=== PATIENT | female | born 1965 | race Caucasian/White ===

== ENCOUNTER 2017-09-28 11:32 | Emergency (ER) | payer MEDICARE, MEDICAID, SELFPAY ==
[2017-09-28 11:34] VITALS: BP 129/88; PULSE 87; RESP 14; TEMP 37.9; O2SAT 95; BMI 51.2
--- NOTE | 2017-09-28 12:30 | RAD_ITS ---
STUDY: X-RAY CHEST REASON FOR EXAM: Female, 52 years old. Cough and chest congestion. TECHNIQUE: PA and lateral views of the chest. COMPARISON: Comparison is made with prior study dated June 08, 2017. FINDINGS: Hyperinflation. Increased markings at the lung bases slightly worse on the left side. This most likely represents scarring. I also suspect focal infiltrate superimposed in the left lower lobe at this time. Radiographic follow-up is recommended. Normal size heart. Normal mediastinum and cherise. Normal visualized pulmonary arteries. Normal visualized aortic arch and descending thoracic aorta. Normal visualized thoracic spine. Normal visualized ribs, clavicles, and shoulders. There is no demonstrated abnormality of the visualized soft tissue structures of the upper abdomen. RAD/Chest PA and Lateral IMPRESSION: Hyperinflation. Findings suggestive of focal infiltrate superimposed on scarring at the left lung base. Electronically Signed: Maxim Kapoor MD at 13:29 EDT Tel [phone], Service support ,
--- NOTE | 2017-09-28 13:38 | ED.VISSUMM ---
- ER Visit Summary Date of Service: 09/28/17 Chief Complaint: [] Cold symptoms History of Present Illness: The patient is a 52 F [] MRDD, presents with caregiver with complaints of URI symptoms and nasal congestion. Caregiver reports she was treated for pneumonia in May of last year. Denies fevers. Physical Examination: [] HEENT: Nasal congestion with mucus, moist mucous membranes. Cardiovascular exam is regular rate and rhythm. Lungs are clear to auscultation. Abdomen is soft nontender. Test Results: [] Chest x-ray reveals early left lower lobe infiltrate. Emergency Department Course and Treatment: [] Labs were not obtained as the patient had a benign presentation. Patient was given initial dose of azithromycin orally for azithromycin for the next 4 days. Treatment Plan: [] Follow-up with PCP. Return if symptoms worsen. Outpatient antibiotic prescription. Disposition: [] Discharge, stable. Impression: [] Left lower lobe infiltrate, community acquired pneumonia This note was generated with [employer] dictation software. It may contain incorrect words, spelling, and punctuation that were not noted in review of the chart prior to signing ED Disposition - Plan for ED Patient: Chief Complaint: Cold Sx Referrals: Lazaro Serna MD [Primary Care Provider] -
--- NOTE | 2017-09-28 13:42 | ED.DCSUM_ITS ---
- ER Visit Summary Date of Service: 09/28/17 Chief Complaint: [] Cold symptoms History of Present Illness: The patient is a 52 F [] MRDD, presents with caregiver with complaints of URI symptoms and nasal congestion. Caregiver reports she was treated for pneumonia in May of last year. Denies fevers. Physical Examination: [] HEENT: Nasal congestion with mucus, moist mucous membranes. Cardiovascular exam is regular rate and rhythm. Lungs are clear to auscultation. Abdomen is soft nontender. Test Results: [] Chest x-ray reveals early left lower lobe infiltrate. Emergency Department Course and Treatment: [] Labs were not obtained as the patient had a benign presentation. Patient was given initial dose of azithromycin orally for azithromycin for the next 4 days. Treatment Plan: [] Follow-up with PCP. Return if symptoms worsen. Outpatient antibiotic prescription. Disposition: [] Discharge, stable. Impression: [] Left lower lobe infiltrate, community acquired pneumonia This note was generated with [employer] dictation software. It may contain incorrect words, spelling, and punctuation that were not noted in review of the chart prior to signing ED Disposition - Plan for ED Patient: Chief Complaint: Cold Sx Referrals: Lazaro Serna MD [Primary Care Provider] -
--- NOTE | 2017-09-28 13:42 | ED.DEP ---
ED Disposition - Plan for ED Patient: Disposition: Home or Assisted Living Chief Complaint: Cold Sx Instructions: ED Upper Resp Infec Abx Tx Prescriptions: Azithromycin 250 mg PO DAILY #4 tab Referrals: Lazaro Serna MD [Primary Care Provider] -
[2017-09-28 14:25] VITALS: PULSE 83; PULSE 85; RESP 16; O2SAT 94; O2SAT 98
[2017-09-28] MEDS: Azithromycin 250 MG Tablet 500 MG PO (14:25)
== END 2017-09-28 14:28 | disposition home or self-care (01) ==
PROVIDERS: Emergency Provider Emergency Medicine; Family Provider Internal Medicine; PCP Internal Medicine
DX: J18.9 Pneumonia, unspecified organism (principal); E78.00 Pure hypercholesterolemia, unspecified; F79 Unspecified intellectual disabilities
CPT/HCPCS: 71046; 99283

== ENCOUNTER 2018-03-30 15:07 | Inpatient (IN) | payer MEDICARE, MEDICAID, SELFPAY ==
[2018-03-30] VITALS (8 sets, daily range): BP systolic 92–114; BP diastolic 41–69; PULSE 73–981; RESP 16–29; TEMP 36.4–37.8; O2SAT 91–100; BMI 24.3; BMI 23.3
--- NOTE | 2018-03-30 15:18 | EKG12_ITS ---
Test Reason : FEVER Blood Pressure : / mmHG Vent. Rate : 104 BPM Atrial Rate : 104 BPM P-R Int : 128 ms QRS Dur : 086 ms QT Int : 324 ms P-R-T Axes : 042 070 -03 degrees QTc Int : 426 ms Sinus tachycardia T wave abnormality, consider inferolateral ischemia Abnormal ECG Confirmed by DAIN FISH, CLARIBEL ([id number]), assignment editor CARY GANNON ([id number]) on 04/02/2018 2:45:13 PM Referred By: Maynor Marie Confirmed By:CLARIBEL GAUTAM MD
--- NOTE | 2018-03-30 15:18 | RAD_ITS ---
STUDY: X-RAY CHEST REASON FOR EXAM: Female, 52 years old. CAREGIVER REPORTS PT HAS BEEN HAVING INCREASED AGITATION AT HOME TODAY. FEVER AT HOME TODAY, HISTORY OF ASPIRATION PNEUMONIA. TECHNIQUE: Single AP portable view of the chest. COMPARISON: None. FINDINGS: The lungs are clear and expanded. There is no demonstrated pleural abnormality. Normal size heart. Normal mediastinum and cherise. Normal visualized pulmonary arteries. Normal visualized aortic arch and descending thoracic aorta. Normal visualized thoracic spine. Normal visualized ribs, clavicles, and shoulders. There is no demonstrated abnormality of the visualized soft tissue structures of the upper abdomen. RAD/Chest 1 View (Portable) IMPRESSION: Normal x-ray examination of the chest. Electronically Signed: Kate Hill MD at 15:38 EDT Tel , Service support ,
--- NOTE | 2018-03-30 15:19 | NURSING ---
NO OLD EKGS
--- NOTE | 2018-03-30 15:20 | ED.VISSUMM ---
- ER Visit Summary Date of Service: 03/30/18 Chief Complaint: Fever, weakness, increased agitation History of Present Illness: The patient is a 52 F who has a history of Down syndrome and has a caregiver 16/01. Caregivers noticed over the past couple of days she has had a cough is increasing. She has a lot of mucus production. She has a hard time clearing it because of her large tongue. She seems weaker than normal. She has been eating less although she does have a couple of Ensure bottles a day. She does not wear any home oxygen. No history of any lung issues. Her temperature is 100.2?F today at home. Physical Examination: Vital signs are reviewed. HEENT exam shows dry mucous membranes. She keeps her tongue protruded throughout the exam. Heart is regular rate and rhythm. Lungs have rhonchorous breath sounds bilaterally. Abdomen soft and nontender. Extremities reveal no edema. Her neurologic exam is at baseline according to caregiver. Test Results: Chest x-ray is read as unremarkable by radiology. EKG is sinus tachycardia with nonspecific ST and T wave changes. White count is 20.4. Glucose 113. Lactate 2.1. Urinalysis negative for blood or infection. Emergency Department Course and Treatment: The patient is producing a lot of mucus. She may have a pneumonia that is not seen on x-ray. She does meet severe sepsis criteria. I will start her on IV fluids and put her on Rocephin and azithromycin. Was discussed with the hospitalist for admission. Treatment Plan: [] Disposition: Admit Impression: Community-acquired pneumonia, severe sepsis This note was generated with [employer] dictation software. It may contain incorrect words, spelling, and punctuation that were not noted in review of the chart prior to signing ED Disposition - Plan for ED Patient: Chief Complaint: Fever Referrals: Lazaro eSrna MD [Primary Care Provider] -
--- NOTE | 2018-03-30 15:24 | ED.DCSUM_ITS ---
- ER Visit Summary Date of Service: 03/30/18 Chief Complaint: Fever, weakness, increased agitation History of Present Illness: The patient is a 52 F who has a history of Down syndrome and has a caregiver 16/01. Caregivers noticed over the past couple of days she has had a cough is increasing. She has a lot of mucus production. She has a hard time clearing it because of her large tongue. She seems weaker than normal. She has been eating less although she does have a couple of Ensure bottles a day. She does not wear any home oxygen. No history of any lung issues. Her temperature is 100.2?F today at home. Physical Examination: Vital signs are reviewed. HEENT exam shows dry mucous membranes. She keeps her tongue protruded throughout the exam. Heart is regular rate and rhythm. Lungs have rhonchorous breath sounds bilaterally. Abdomen soft and nontender. Extremities reveal no edema. Her neurologic exam is at baseline according to caregiver. Test Results: Chest x-ray is read as unremarkable by radiology. EKG is sinus tachycardia with nonspecific ST and T wave changes. White count is 20.4. Glucose 113. Lactate 2.1. Urinalysis negative for blood or infection. Emergency Department Course and Treatment: The patient is producing a lot of mucus. She may have a pneumonia that is not seen on x-ray. She does meet severe sepsis criteria. I will start her on IV fluids and put her on Rocephin and azithromycin. Was discussed with the hospitalist for admission. Treatment Plan: [] Disposition: Admit Impression: Community-acquired pneumonia, severe sepsis This note was generated with [employer] dictation software. It may contain incorrect words, spelling, and punctuation that were not noted in review of the chart prior to signing ED Disposition - Plan for ED Patient: Chief Complaint: Fever Referrals: Lazaro Serna MD [Primary Care Provider] -
[2018-03-30 16:10] LABS: Absolute Lymphocyte Count 1.02 X10^3/ul (0.83-4.51); Absolute Neutrophil Count 18.3 X10^3/uL (2.0-7.7); Basophil# 0.04 X10^3/uL; Basophil% 0.2 % (0-1); Eosinophil# 0.01 X10^3/uL; Hemoglobin 13.9 g/dl (12.0-15.0); Lymphocyte # 1.02 X10^3/ul (4.0); Mean Corp Hgb Conc 33.1 g/gl (32-36); Mean Corpuscular Hgb 32.9 pg (27.0-32.0); Mean Corpuscular Volume 99.3 fL (81-99); Mean Platelet Vol. 9.4 fl (6.2-12.0); Monocyte# 0.96 X10^3/uL; Monocyte% 4.7 % (0-10); Neutrophil # 18.27 X10^3/uL (2.7-7.7); Neutrophil % 89.8 % (47-70); Platelet Count 281 K/mm3 (150-450); RBC Distribution Width CV 14.1 % (11.6-14.6); RBC Distribution Width SD 50.3 fl (35.1-43.9); Red Blood Count 4.23 M/mm3 (4.2-5.4); White Blood Count 20.4 K/mm3 (4.4-11.0)
[2018-03-30 16:12] LABS: POSITIVE COUNT NO; POSITIVE DIFFERENTIAL NO; POSITIVE MORPHOLOGY NO
[2018-03-30 16:19] LABS: Bacteria 0 SEEN /hpf (None Seen); Mucous, Urine 0 SEEN /hpf (<or=2+); Red Blood Cells-Urine 0 SEEN /hpf (0-5); Squamous Epithelial Cells - UA 0 SEEN /hpf (5-10); White Blood Cells 0 SEEN /hpf (0-5)
[2018-03-30 16:24] LABS: Color, Urine Yellow (Yellow); Glucose, Dipstick Normal (Normal); Ketone-Dipstick 5 mg/dl (Negative); Leukocyte Esterase-Dipstick 25 /ul (Negative); Nitrite-Dipstick Negative (Negative); Occult Blood-Urine Negative /ul (Negative); Protein-Dipstick Negative (Negative); Urine Bilirubin Dipstick Negative (Negative); Urine Clarity Clear (Clear); Urine Urobilinogen Normal (Normal)
[2018-03-30 16:28] LABS: ALB/GLOB Ratio 0.5 RATIO (0.9-2.4); AST(SGOT) 29 U/L (15-37); Alanine Aminotransfer ALT/SGPT 17 U/L (13-56); Albumin, Serum 2.8 g/dL (3.2-5.0); Alkaline Phosphatase 101 U/L (45-117); Anion Gap 7 (5-15); BUN 14 mg/dL (7-18); BUN/Creat Ratio 14.4 RATIO (10-20); Calcium,Total 9.2 mg/dL (8.5-10.1); Chloride 100 mmol/L (98-107); Creatinine, Serum 0.97 mg/dL (0.55-1.02); EST Glomerular Filtration Rate 64 mL/min (>60); Est Glom Filt Rate - Afr Amer 77 mL/min (>60); Estimated Creatinine Clearance 57.08 ml/min; Globulin 5.8 g/dL (2.2-4.2); Glucose 113 mg/dL (74-106); Potassium 4.2 mmol/L (3.5-5.1); Protein, Total 8.6 g/dL (6.4-8.2); Sodium Level 138 mmol/L (136-145)
[2018-03-30 16:32] LABS: Prothrombin Time (Protime)PT. 13.1 SECONDS (11.7-14.9)
[2018-03-30 16:33] LABS: Partial Thromboplast Time 27.7 Seconds (24.1-36.2)
[2018-03-30 16:43] LABS: Lactic Acid 2.1 mmol/L (0.4-2.0)
--- NOTE | 2018-03-30 16:58 | NURSING ---
MED SURG CAP, SEVERE SEPSIS [place]
--- NOTE | 2018-03-30 17:13 | PCM.HP.STD ---
Problem List (1) Pneumococcal pneumonia Status: Acute Qualifiers: Laterality: right Lung location: lower lobe of lung Qualified Code(s): J13 - Pneumonia due to Streptococcus pneumoniae (2) Severe sepsis Status: Acute History of Present Illness Date of Admission: 03/30/18 Chief Complaint: fever cough. The patient is a 52 year old F with Down syndrome presents with fever today at home. Patient is also been coughing up some phlegm and has been more listless and eating less. Patient's senior biostatistician/group leader noticed this and sent the patient to the emergency room. In the emergency room patient underwent a workup that showed a white count of 20,000, lactic acid 2.1. Chest x-ray was read as normal but concern from the emergency room physician for developing pneumonia and patient received Rocephin and azithromycin. Patient does not talk so unable to obtain any history through her so history is obtained through the emergency room physician as well as a senior biostatistician/group leader. [] Past Medical History Past Medical History (Chronic Problems): Chronic Problems Down syndrome (Chronic) HLD (hyperlipidemia) (Chronic) Depression (Chronic) Allergies Sulfa (Sulfonamide Antibiotics) Allergy (Verified 03/30/18 15:08) Rash lactose Adverse Reaction (Verified 03/30/18 15:08) Diarrhea Home Medications: Ambulatory Orders Medication Instructions Recorded Escitalopram Oxalate [Lexapro] 20 mg PO QHS 01/04/16 Levothyroxine [Synthroid] 88 mcg PO DAILY 01/04/16 Simvastatin [Zocor] 5 mg PO QHS 01/04/16 Gabapentin [Neurontin] 100 mg PO QHS 05/01/17 Multivitamin,Therapeutic [Thera] 1 each PO DAILY 09/28/17 Surgical History: - - partial hysterectomy Psychiatric History: Depression HYPERION ESSBASE DEVELOPER History: No pertinent HYPERION ESSBASE DEVELOPER history Smoking Status: Never smoker Tobacco Use: Non-smoker Alcohol: None Drugs: None - *Family History Maternal History Items: Dementia Paternal History Items: Stroke Review of Systems Unable to obtain accurate/complete ROS d/t: Unable to obtain as the patient does not speak to me. VTE Information - Inpt Only VTE Present on Admission: No VTE Mechan Device Prophylaxis: None VTE Pharm Prophylaxis ordered?: Yes Patient Problems: Active and Suspected Problems Pneumococcal pneumonia (Acute) Severe sepsis (Acute) - Physical Exam General: Alert, No apparent distress, - - Constant writhing of her tongue. Afebrile. Short stature HEENT: Atraumatic, Normocephalic, - - No scleral icterus Oral: Moist Mucosa, - - Dentulous Neck: No Nodes, Thyroid Normal Size and Texture Lungs: Diminished, - - Coarse breath sounds bilaterally Cardiovascular: Regular rate, Regular Rhythm, Normal S1, Normal S2, No murmurs Abdomen: Bowel Sounds Present, Soft, Non Tender, Non-Distended, No Hepato-splenomegaly Extremities: No edema, No Calf Tenderness Skin: No rashes, No breakdown Musculoskeletal: No Tenderness to Palpation of Joints or Extremities, No Muscle Wasting Neurological: - - No clonus.. 6 DTRs in lower extremity's bilaterally Psych/Mental Status: Flat Affect Vital Signs Temp Pulse Resp BP Pulse Ox 36.6 C 981 H 24 H 105/58 L 95 03/30/18 15:46 03/30/18 15:46 03/30/18 15:46 03/30/18 15:46 03/30/18 15:46 Oxygen Flow Rate (L/min) 2 Oxygen Delivery Method Nasal Cannula Weight: 52.7 kg Body Mass Index (BMI) 24.3 Laboratory Tests Past 24 Hrs 03/30/18 03/30/18 03/30/18 15:50 15:50 15:50 WBC 20.4 H RBC 4.23 Hgb 13.9 Hct 42.0 MCV 99.3 H MCH 32.9 H MCHC 33.1 RDW 14.1 RDW Differential 50.3 H Plt Count 281 MPV 9.4 Immature Gran % (Auto) 0.300 Neut % (Auto) 89.8 H Lymph % (Auto) 5.0 L [place] % (Auto) 4.7 Eos % (Auto) 0.0 Baso % (Auto) 0.2 Absolute Neuts (auto) 18.3 H Absolute Lymphs (auto) 1.02 Total Counted Not Reportable PT 13.1 INR 1.0 APTT 27.7 Sodium 138 Potassium 4.2 Chloride 100 Carbon Dioxide 31.0 Anion Gap 7 BUN 14 Creatinine 0.97 Estim Creat Clear Calc 57.08 Est GFR (MDRD) Af Amer 77 Est GFR (MDRD) Non-Af 64 BUN/Creatinine Ratio 14.4 Glucose 113 H Lactic Acid Calcium 9.2 Total Bilirubin 0.80 AST 29 ALT 17 Alkaline Phosphatase 101 Total Protein 8.6 H Albumin 2.8 L Globulin 5.8 H Albumin/Globulin Ratio 0.5 L Urine Color Urine Clarity Urine pH Ur Specific [place] Urine Protein Urine Glucose (UA) Urine Ketones Urine Occult Blood Urine Nitrite Urine Bilirubin Urine Urobilinogen Ur Leukocyte Esterase Urine RBC Urine WBC Ur Squamous Epith Cells Urine Bacteria Urine Mucus 03/30/18 03/30/18 15:50 16:10 WBC RBC Hgb Hct MCV MCH MCHC RDW RDW Differential Plt Count MPV Immature Gran % (Auto) Neut % (Auto) Lymph % (Auto) [place] % (Auto) Eos % (Auto) Baso % (Auto) Absolute Neuts (auto) Absolute Lymphs (auto) Total Counted PT INR APTT Sodium Potassium Chloride Carbon Dioxide Anion Gap BUN Creatinine Estim Creat Clear Calc Est GFR (MDRD) Af Amer Est GFR (MDRD) Non-Af BUN/Creatinine Ratio Glucose Lactic Acid 2.1 H Calcium Total Bilirubin AST ALT Alkaline Phosphatase Total Protein Albumin Globulin Albumin/Globulin Ratio Urine Color Yellow Urine Clarity Clear Urine pH 8.0 Ur Specific [place] 1.010 Urine Protein Negative Urine Glucose (UA) Normal Urine Ketones 5 H Urine Occult Blood Negative Urine Nitrite Negative Urine Bilirubin Negative Urine Urobilinogen Normal Ur Leukocyte Esterase 25 H Urine RBC 0 SEEN Urine WBC 0 SEEN Ur Squamous Epith Cells 0 SEEN Urine Bacteria 0 SEEN Urine Mucus 0 SEEN Chest x-ray reviewed and showed some slight increasing right lower lobe markings as compared to previous chest x-rays from September 28 of this year. Assessment/Plan All Active Problems Pneumococcal pneumonia (Acute) Severe sepsis (Acute) Acute bronchitis (Acute) Pneumonia (Acute) 1. Severe sepsis present on arrival Secondary to pneumonia Supportive management Follow-up lactic acid. Initial lactic acid was 2.1 Follow-up blood cultures Urinalysis was negative 2. Presumed pneumococcal pneumonia Azithromycin and and Rocephin Check urinary antigens for strep to coccus and Legionella Check sputum culture 3. Down syndrome complicates care 4. History of dysphagia Patient's pneumonia could certainly could be aspiration Though it has been elected previously to have comfort feeds and thin liquids for the patient 5. DVT prophylaxis with Lovenox 6. Advanced care planning. The senior biostatistician/group leader is not the power of claim attorney and that is the patient's sister but patient has been previously full CODE STATUS. Code Visit Inpatient E&M: 27266 Init Hosp L3
[2018-03-30] MEDS: 0.9% Normal Saline 1,000 ML 150 ML IV (17:16)
[2018-03-30] MEDS: Ceftriaxone 1 GM/50 ML BAG IV (17:16)
--- NOTE | 2018-03-30 17:19 | HP.PCM_ITS ---
Problem List (1) Pneumococcal pneumonia Status: Acute Qualifiers: Laterality: right Lung location: lower lobe of lung Qualified Code(s): J13 - Pneumonia due to Streptococcus pneumoniae (2) Severe sepsis Status: Acute History of Present Illness Date of Admission: 03/30/18 Chief Complaint: fever cough. The patient is a 52 year old F with Down syndrome presents with fever today at home. Patient is also been coughing up some phlegm and has been more listless and eating less. Patient's manager industrial noticed this and sent the patient to the emergency room. In the emergency room patient underwent a workup that showed a white count of 20,000, lactic acid 2.1. Chest x-ray was read as normal but concern from the emergency room physician for developing pneumonia and patient received Rocephin and azithromycin. Patient does not talk so unable to obtain any history through her so history is obtained through the emergency room physician as well as a manager industrial. [] Past Medical History Past Medical History (Chronic Problems): Chronic Problems Down syndrome (Chronic) HLD (hyperlipidemia) (Chronic) Depression (Chronic) Allergies Sulfa (Sulfonamide Antibiotics) Allergy (Verified 03/30/18 15:08) Rash lactose Adverse Reaction (Verified 03/30/18 15:08) Diarrhea Home Medications: Ambulatory Orders Medication Instructions Recorded Escitalopram Oxalate [Lexapro] 20 mg PO QHS 01/04/16 Levothyroxine [Synthroid] 88 mcg PO DAILY 01/04/16 Simvastatin [Zocor] 5 mg PO QHS 01/04/16 Gabapentin [Neurontin] 100 mg PO QHS 05/01/17 Multivitamin,Therapeutic [Thera] 1 each PO DAILY 09/28/17 Surgical History: - - partial hysterectomy Psychiatric History: Depression CEREAL SUPERVISOR History: No pertinent CEREAL SUPERVISOR history Smoking Status: Never smoker Tobacco Use: Non-smoker Alcohol: None Drugs: None - *Family History Maternal History Items: Dementia Paternal History Items: Stroke Review of Systems Unable to obtain accurate/complete ROS d/t: Unable to obtain as the patient does not speak to me. VTE Information - Inpt Only VTE Present on Admission: No VTE Mechan Device Prophylaxis: None VTE Pharm Prophylaxis ordered?: Yes Patient Problems: Active and Suspected Problems Pneumococcal pneumonia (Acute) Severe sepsis (Acute) - Physical Exam General: Alert, No apparent distress, - - Constant writhing of her tongue. Afebrile. Short stature HEENT: Atraumatic, Normocephalic, - - No scleral icterus Oral: Moist Mucosa, - - Dentulous Neck: No Nodes, Thyroid Normal Size and Texture Lungs: Diminished, - - Coarse breath sounds bilaterally Cardiovascular: Regular rate, Regular Rhythm, Normal S1, Normal S2, No murmurs Abdomen: Bowel Sounds Present, Soft, Non Tender, Non-Distended, No Hepato- splenomegaly Extremities: No edema, No Calf Tenderness Skin: No rashes, No breakdown Musculoskeletal: No Tenderness to Palpation of Joints or Extremities, No Muscle Wasting Neurological: - - No clonus.. 6 DTRs in lower extremity's bilaterally Psych/Mental Status: Flat Affect Vital Signs Temp Pulse Resp BP Pulse Ox 36.6 C 981 H 24 H 105/58 L 95 03/30/18 15:46 03/30/18 15:46 03/30/18 15:46 03/30/18 15:46 03/30/18 15:46 Oxygen Flow Rate (L/min) 2 Oxygen Delivery Method Nasal Cannula Weight: 52.7 kg Body Mass Index (BMI) 24.3 Laboratory Tests Past 24 Hrs 03/30/18 03/30/18 03/30/18 15:50 15:50 15:50 WBC 20.4 H RBC 4.23 Hgb 13.9 Hct 42.0 MCV 99.3 H MCH 32.9 H MCHC 33.1 RDW 14.1 RDW Differential 50.3 H Plt Count 281 MPV 9.4 Immature Gran % (Auto) 0.300 Neut % (Auto) 89.8 H Lymph % (Auto) 5.0 L [place] % (Auto) 4.7 Eos % (Auto) 0.0 Baso % (Auto) 0.2 Absolute Neuts (auto) 18.3 H Absolute Lymphs (auto) 1.02 Total Counted Not Reportable PT 13.1 INR 1.0 APTT 27.7 Sodium 138 Potassium 4.2 Chloride 100 Carbon Dioxide 31.0 Anion Gap 7 BUN 14 Creatinine 0.97 Estim Creat Clear Calc 57.08 Est GFR (MDRD) Af Amer 77 Est GFR (MDRD) Non-Af 64 BUN/Creatinine Ratio 14.4 Glucose 113 H Lactic Acid Calcium 9.2 Total Bilirubin 0.80 AST 29 ALT 17 Alkaline Phosphatase 101 Total Protein 8.6 H Albumin 2.8 L Globulin 5.8 H Albumin/Globulin Ratio 0.5 L Urine Color Urine Clarity Urine pH Ur Specific [place] Urine Protein Urine Glucose (UA) Urine Ketones Urine Occult Blood Urine Nitrite Urine Bilirubin Urine Urobilinogen Ur Leukocyte Esterase Urine RBC Urine WBC Ur Squamous Epith Cells Urine Bacteria Urine Mucus 03/30/18 03/30/18 15:50 16:10 WBC RBC Hgb Hct MCV MCH MCHC RDW RDW Differential Plt Count MPV Immature Gran % (Auto) Neut % (Auto) Lymph % (Auto) [place] % (Auto) Eos % (Auto) Baso % (Auto) Absolute Neuts (auto) Absolute Lymphs (auto) Total Counted PT INR APTT Sodium Potassium Chloride Carbon Dioxide Anion Gap BUN Creatinine Estim Creat Clear Calc Est GFR (MDRD) Af Amer Est GFR (MDRD) Non-Af BUN/Creatinine Ratio Glucose Lactic Acid 2.1 H Calcium Total Bilirubin AST ALT Alkaline Phosphatase Total Protein Albumin Globulin Albumin/Globulin Ratio Urine Color Yellow Urine Clarity Clear Urine pH 8.0 Ur Specific [place] 1.010 Urine Protein Negative Urine Glucose (UA) Normal Urine Ketones 5 H Urine Occult Blood Negative Urine Nitrite Negative Urine Bilirubin Negative Urine Urobilinogen Normal Ur Leukocyte Esterase 25 H Urine RBC 0 SEEN Urine WBC 0 SEEN Ur Squamous Epith Cells 0 SEEN Urine Bacteria 0 SEEN Urine Mucus 0 SEEN Chest x-ray reviewed and showed some slight increasing right lower lobe markings as compared to previous chest x-rays from September 28 of this year. Assessment/Plan All Active Problems Pneumococcal pneumonia (Acute) Severe sepsis (Acute) Acute bronchitis (Acute) Pneumonia (Acute) 1. Severe sepsis * present on arrival * Secondary to pneumonia * Supportive management * Follow-up lactic acid. Initial lactic acid was 2.1 * Follow-up blood cultures * Urinalysis was negative 2. Presumed pneumococcal pneumonia * Azithromycin and and Rocephin * Check urinary antigens for strep to coccus and Legionella * Check sputum culture 3. Down syndrome * complicates care 4. History of dysphagia * Patient's pneumonia could certainly could be aspiration * Though it has been elected previously to have comfort feeds and thin liquids for the patient 5. DVT prophylaxis with Lovenox 6. Advanced care planning. The manager industrial is not the power of seed cleaning machine operator and that is the patient's sister but patient has been previously full CODE STATUS. Code Visit Inpatient E&M: 40434 Init Hosp L3
[2018-03-30] MEDS: Ipratropium/Albuterol Sulfate 3 ML AMPUL.NEB INHALATION ×2 (19:17→23:04)
[2018-03-30 20:00] LABS: Reflex Lactate? Y
--- NOTE | 2018-03-30 20:04 | CPS ---
pt is mrdd does not follow instructions for pep and would not allow vest to be put on
[2018-03-30] MEDS: Acetaminophen 325 MG Tablet 650 MG PO (20:15)
[2018-03-30 21:28] LABS: Lactic Acid 1.5 mmol/L (0.4-2.0)
[2018-03-30] MEDS: Atorvastatin Calcium 10 MG Tablet 5 MG PO (22:11)
[2018-03-30] MEDS: guaiFENesin 1,200 MG Tablet 1200 MG PO (22:11)
[2018-03-30] MEDS: Escitalopram Oxalate 20 MG Tablet PO (22:11)
[2018-03-30] MEDS: Gabapentin 100 MG Capsule PO (22:11)
--- NOTE | 2018-03-30 23:10 | CPS ---
pt did not want aero tx-kept batting mask away and turning head away. aero held in front of pt face-did not tolerate. pt moaning
[2018-03-31] VITALS (8 sets, daily range): BP systolic 102–133; BP diastolic 44–86; PULSE 64–84; RESP 18–22; TEMP 36.6–37.1; O2SAT 94–96
[2018-03-31] MEDS: 0.9% Normal Saline 1,000 ML 125 ML IV (00:13)
[2018-03-31] MEDS: Levothyroxine 88 MCG Tablet PO (06:47)
--- NOTE | 2018-03-31 07:20 | PCM.PN.HOSP ---
Patient Problems: Active and Suspected Problems Pneumococcal pneumonia (Acute) Severe sepsis (Acute) Subjective: Patient able to nod head for some answers and states that she feels improved since initial presentation and denies any current dyspnea. She is currently attempting to sit up and color in a coloring book. Patient without evidence of fevers, chills, nausea, emesis, abdominal pain, chest pain per nursing staff and yes and no questioning. Objective: Physical Examination: General: awake, alert, able to answer some yes/no questions with head nod, difficult to request orientation questions, underlying MRDD, cooperative, seated upright in bed in no apparent distress. Skin: normal color, turgor, no icterus, cyanosis. HEENT: AT/NC, EOMI, PERRLA, mildly dry MM. Lungs: Diminished BS BL, > bases, mild coarse, rales bases, no wheezing. Heart: Regular rate and rhythm; no gallop, rub audible. Abdomen: soft, NTTP, ND, normal BS. Extremities: no cyanosis, clubbing, or edema. Neurological: patient awake, alert, orientation difficult to assess w/ underlying MRDD; cognitive function possibly baseline intact, low baseline; pupils equally reactive to light and accomodation; cranial nerves II-XII grossly normal, moving all 4 extremities, no focal deficits, strength appears moderately globally decreased secondary to acute presentation. Psychiatric: affect appears mildly flat, no acute evidence of depressive or anxiety feelings. Vitals/I&O's: Vital Signs Temp Pulse Resp BP Pulse Ox 98.4 F 71 22 H 133/86 H 95 03/31/18 04:07 03/31/18 04:07 03/31/18 04:07 03/31/18 04:07 03/31/18 04:07 Oxygen Flow Rate (L/min) 2 Oxygen Delivery Method Room Air Weight: 111 lb Body Mass Index (BMI) 23.3 Intake and Output for Last 24 Hours 03/29/18 03/30/18 03/31/18 23:59 23:59 23:59 Intake Total 1316 / 1316 913 / 913 Output Total 150 / 150 100 / 100 Balance 1166 / 1166 813 / 813 Microbiology Past 72 Hours 03/30/18 16:10 Urine, Clean Catch Streptococcus pneumoniae Antigen (M - Final Streptococcus pneumonia Ag 03/30/18 16:10 Urine, Clean Catch Legionella Antigen - Final Laboratory Results 03/30/18 15:50: WBC 20.4 H, RBC 4.23, Hgb 13.9, Hct 42.0, MCV 99.3 H, MCH 32.9 H, MCHC 33.1, RDW 14.1, RDW Differential 50.3 H, Plt Count 281, MPV 9.4, Immature Gran % (Auto) 0.300, Neut % (Auto) 89.8 H, Lymph % (Auto) 5.0 L, [place] % (Auto) 4.7, Eos % (Auto) 0.0, Baso % (Auto) 0.2, Absolute Neuts (auto) 18.3 H, Absolute Lymphs (auto) 1.02, Total Counted Not Reportable 03/30/18 15:50: PT 13.1, INR 1.0, APTT 27.7 03/30/18 15:50: Sodium 138, Potassium 4.2, Chloride 100, Carbon Dioxide 31.0, Anion Gap 7, BUN 14, Creatinine 0.97, Estim Creat Clear Calc 57.08, Est GFR (MDRD) Af Amer 77, Est GFR (MDRD) Non-Af 64, BUN/Creatinine Ratio 14.4, Glucose 113 H, Calcium 9.2, Total Bilirubin 0.80, AST 29, ALT 17, Alkaline Phosphatase 101, Total Protein 8.6 H, Albumin 2.8 L, Globulin 5.8 H, Albumin/Globulin Ratio 0.5 L 03/30/18 15:50: Lactic Acid 2.1 H 03/30/18 16:10: Urine Color Yellow, Urine Clarity Clear, Urine pH 8.0, Ur Specific [place] 1.010, Urine Protein Negative, Urine Glucose (UA) Normal, Urine Ketones 5 H, Urine Occult Blood Negative, Urine Nitrite Negative, Urine Bilirubin Negative, Urine Urobilinogen Normal, Ur Leukocyte Esterase 25 H, Urine RBC 0 SEEN, Urine WBC 0 SEEN, Ur Squamous Epith Cells 0 SEEN, Urine Bacteria 0 SEEN, Urine Mucus 0 SEEN 03/30/18 20:45: Lactic Acid 1.5 Current Medications Acetaminophen (Tylenol) 650 mg PO Q4H PRN PRN PRN Reason: FEVER Last Admin: 03/30/18 20:15 Dose: 650 mg Albuterol Sulfate (Ventolin Aerosols) 2.5 mg INHALATION Q2H PRN PRN Reason: SHORTNESS OF BREATH Albuterol/Ipratropium (Duoneb) 3 ml INHALATION Q4HWA.RT [facility] Last Admin: 03/30/18 23:04 Dose: 3 ml Atorvastatin Calcium (Lipitor) 5 mg PO QHS [facility] Last Admin: 03/30/18 22:11 Dose: 5 mg Enoxaparin Sodium (Lovenox) 40 mg SC DAILY@1000 [facility] Escitalopram Oxalate (Lexapro) 20 mg PO QHS [facility] Last Admin: 03/30/18 22:11 Dose: 20 mg Gabapentin (Neurontin) 100 mg PO QHS [facility] Last Admin: 03/30/18 22:11 Dose: 100 mg Guaifenesin (Mucinex) 1,200 mg PO BID [facility] Last Admin: 03/30/18 22:11 Dose: 1,200 mg Azithromycin 500 mg/ Dextrose 255 mls @ 250 mls/hr IV Q24 [facility] Stop: 04/02/18 11:02 Ceftriaxone Sodium (Rocephin) 1 gm in 50 mls @ 100 mls/hr IV Q24 [facility] Levothyroxine Sodium (Synthroid) 88 mcg PO DAILY@0600 [facility] Last Admin: 03/31/18 06:47 Dose: 88 mcg Magnesium Hydroxide (Milk Of Magnesia) 30 ml PO DAILY PRN PRN PRN Reason: Constipation Multivitamins (Multivitamin) 1 tablet PO DAILY@0800 [facility] Sodium Chloride () 5 - 30 ml IV UD PRN PRN Reason: SALINE FLUSH Medical Necessity - Tobacco Use Smoking Status: Never smoker Tobacco Use: Non-smoker Assessment/Plan All Active Problems Pneumococcal pneumonia (Acute) Severe sepsis (Acute) Acute bronchitis (Acute) Pneumonia (Acute) The patient is a 52 y/o F w/ PMHx: Down Syndrome, HLD, Depression, Hypothyroidism who presents to the [facility] ED on 03/[facility] from [facility] with increased lethargy, productive cough, poor intake as well as onset fever times 24-48 hours prompting ED evaluation. (1) Severe Sepsis secondary to Streptococcal Pneumonia: CXR without acute process, but clinically suspected PNA. Admission CBC w/ WBC 204. with L shift, LA 2.1, RR > 20. Admitted to [place], maintain on oxygen with wean as tolerated to room air, continue ATC duonebs, PRN albuterol, maintained on IV Rocephin and Azithromycin-->03/31/18 rocephin only given + strep antigen, HOB, IS parameters w/ + strep urine antigens. Bld cx x 2 obtained in the ED. Repeat LA improved 1.5 (2) Hypothyroidism: Continue home synthroid regimen. (3) Hyperlipidemia: Continue home statin regimen. (4) Depression: Continue home Lexapro regimen. (5) Down Syndrome: Living in long-term, CM consultation, plan return once clinically appropriate. (6) DVT prophylaxis: SCD, Lovenox. Code Visit Inpatient E&M: 21990 Subs Hosp L2
--- NOTE | 2018-03-31 07:26 | PN_ITS ---
Patient Problems: Active and Suspected Problems Pneumococcal pneumonia (Acute) Severe sepsis (Acute) Subjective: Patient able to nod head for some answers and states that she feels improved since initial presentation and denies any current dyspnea. She is currently attempting to sit up and color in a coloring book. Patient without evidence of fevers, chills, nausea, emesis, abdominal pain, chest pain per nursing staff and yes and no questioning. Objective: Physical Examination: General: awake, alert, able to answer some yes/no questions with head nod, difficult to request orientation questions, underlying MRDD, cooperative, seated upright in bed in no apparent distress. Skin: normal color, turgor, no icterus, cyanosis. HEENT: AT/NC, EOMI, PERRLA, mildly dry MM. Lungs: Diminished BS BL, > bases, mild coarse, rales bases, no wheezing. Heart: Regular rate and rhythm; no gallop, rub audible. Abdomen: soft, NTTP, ND, normal BS. Extremities: no cyanosis, clubbing, or edema. Neurological: patient awake, alert, orientation difficult to assess w/ underlying MRDD; cognitive function possibly baseline intact, low baseline; pupils equally reactive to light and accomodation; cranial nerves II-XII grossly normal, moving all 4 extremities, no focal deficits, strength appears moderately globally decreased secondary to acute presentation. Psychiatric: affect appears mildly flat, no acute evidence of depressive or anxiety feelings. Vitals/I&O's: Vital Signs Temp Pulse Resp BP Pulse Ox 98.4 F 71 22 H 133/86 H 95 03/31/18 04:07 03/31/18 04:07 03/31/18 04:07 03/31/18 04:07 03/31/18 04:07 Oxygen Flow Rate (L/min) 2 Oxygen Delivery Method Room Air Weight: 111 lb Body Mass Index (BMI) 23.3 Intake and Output for Last 24 Hours 03/29/18 03/30/18 03/31/18 23:59 23:59 23:59 Intake Total 1316 / 1316 913 / 913 Output Total 150 / 150 100 / 100 Balance 1166 / 1166 813 / 813 Microbiology Past 72 Hours 03/30/18 16:10 Urine, Clean Catch Streptococcus pneumoniae Antigen (M - Final Streptococcus pneumonia Ag 03/30/18 16:10 Urine, Clean Catch Legionella Antigen - Final Laboratory Results 03/30/18 15:50: WBC 20.4 H, RBC 4.23, Hgb 13.9, Hct 42.0, MCV 99.3 H, MCH 32.9 H , MCHC 33.1, RDW 14.1, RDW Differential 50.3 H, Plt Count 281, MPV 9.4, Immature Gran % (Auto) 0.300, Neut % (Auto) 89.8 H, Lymph % (Auto) 5.0 L, [place] % (Auto) 4.7, Eos % (Auto) 0.0, Baso % (Auto) 0.2, Absolute Neuts (auto) 18.3 H, Absolute Lymphs (auto) 1.02, Total Counted Not Reportable 03/30/18 15:50: PT 13.1, INR 1.0, APTT 27.7 03/30/18 15:50: Sodium 138, Potassium 4.2, Chloride 100, Carbon Dioxide 31.0, Anion Gap 7, BUN 14, Creatinine 0.97, Estim Creat Clear Calc 57.08, Est GFR (MDRD) Af Amer 77, Est GFR (MDRD) Non-Af 64, BUN/Creatinine Ratio 14.4, Glucose 113 H, Calcium 9.2, Total Bilirubin 0.80, AST 29, ALT 17, Alkaline Phosphatase 101, Total Protein 8.6 H, Albumin 2.8 L, Globulin 5.8 H, Albumin/Globulin Ratio 0.5 L 03/30/18 15:50: Lactic Acid 2.1 H 03/30/18 16:10: Urine Color Yellow, Urine Clarity Clear, Urine pH 8.0, Ur Specific [place] 1.010, Urine Protein Negative, Urine Glucose (UA) Normal, Urine Ketones 5 H, Urine Occult Blood Negative, Urine Nitrite Negative, Urine Bilirubin Negative, Urine Urobilinogen Normal, Ur Leukocyte Esterase 25 H, Urine RBC 0 SEEN, Urine WBC 0 SEEN, Ur Squamous Epith Cells 0 SEEN, Urine Bacteria 0 SEEN, Urine Mucus 0 SEEN 03/30/18 20:45: Lactic Acid 1.5 Current Medications Acetaminophen (Tylenol) 650 mg PO Q4H PRN PRN PRN Reason: FEVER Last Admin: 03/30/18 20:15 Dose: 650 mg Albuterol Sulfate (Ventolin Aerosols) 2.5 mg INHALATION Q2H PRN PRN Reason: SHORTNESS OF BREATH Albuterol/Ipratropium (Duoneb) 3 ml INHALATION Q4HWA.RT [facility] Last Admin: 03/30/18 23:04 Dose: 3 ml Atorvastatin Calcium (Lipitor) 5 mg PO QHS [facility] Last Admin: 03/30/18 22:11 Dose: 5 mg Enoxaparin Sodium (Lovenox) 40 mg SC DAILY@1000 [facility] Escitalopram Oxalate (Lexapro) 20 mg PO QHS [facility] Last Admin: 03/30/18 22:11 Dose: 20 mg Gabapentin (Neurontin) 100 mg PO QHS [facility] Last Admin: 03/30/18 22:11 Dose: 100 mg Guaifenesin (Mucinex) 1,200 mg PO BID [facility] Last Admin: 03/30/18 22:11 Dose: 1,200 mg Azithromycin 500 mg/ Dextrose 255 mls @ 250 mls/hr IV Q24 [facility] Stop: 04/02/18 11:02 Ceftriaxone Sodium (Rocephin) 1 gm in 50 mls @ 100 mls/hr IV Q24 [facility] Levothyroxine Sodium (Synthroid) 88 mcg PO DAILY@0600 [facility] Last Admin: 03/31/18 06:47 Dose: 88 mcg Magnesium Hydroxide (Milk Of Magnesia) 30 ml PO DAILY PRN PRN PRN Reason: Constipation Multivitamins (Multivitamin) 1 tablet PO DAILY@0800 [facility] Sodium Chloride () 5 - 30 ml IV UD PRN PRN Reason: SALINE FLUSH Medical Necessity - Tobacco Use Smoking Status: Never smoker Tobacco Use: Non-smoker Assessment/Plan All Active Problems Pneumococcal pneumonia (Acute) Severe sepsis (Acute) Acute bronchitis (Acute) Pneumonia (Acute) The patient is a 52 y/o F w/ PMHx: Down Syndrome, HLD, Depression, Hypothyroidism who presents to the [facility] ED on 03/30/[facility] [place] with increased lethargy, productive cough, poor intake as well as onset fever times 24-48 hours prompting ED evaluation. (1) Severe Sepsis secondary to Streptococcal Pneumonia: CXR without acute process, but clinically suspected PNA. Admission CBC w/ WBC 204. with L shift, LA 2.1, RR > 20. Admitted to [place], maintain on oxygen with wean as tolerated to room air, continue ATC duonebs, PRN albuterol, maintained on IV Rocephin and Amberly thromycin-->03/31/18 rocephin only given + strep antigen, HOB, IS parameters w/ + strep urine antigens. Bld cx x 2 obtained in the ED. Repeat LA improved 1.5 (2) Hypothyroidism: Continue home synthroid regimen. (3) Hyperlipidemia: Continue home statin regimen. (4) Depression: Continue home Lexapro regimen. (5) Down Syndrome: Living in [place] [facility], CM consultation, plan return once clinically appropriate. (6) DVT prophylaxis: SCD, Lovenox. Code Visit Inpatient E&M: 01057 Subs Hosp L2
[2018-03-31] MEDS: Ipratropium/Albuterol Sulfate 3 ML AMPUL.NEB INHALATION ×3 (07:31→15:00)
[2018-03-31 08:07] LABS: Absolute Lymphocyte Count 1.47 X10^3/ul (0.83-4.51); Absolute Neutrophil Count 13.4 X10^3/uL (2.0-7.7); Basophil# 0.04 X10^3/uL; Basophil% 0.3 % (0-1); Eosinophil# 0.02 X10^3/uL; Eosinophils% 0.1 % (0-5); Hematocrit 37.3 % (37-47); Hemoglobin 12.1 g/dl (12.0-15.0); Lymphocyte # 1.47 X10^3/ul (4.0); Lymphocyte % 9.4 % (19-41); Mean Corp Hgb Conc 32.4 g/gl (32-36); Mean Corpuscular Hgb 32.3 pg (27.0-32.0); Mean Corpuscular Volume 99.5 fL (81-99); Mean Platelet Vol. 9.6 fl (6.2-12.0); Monocyte# 0.59 X10^3/uL; Monocyte% 3.8 % (0-10); Neutrophil # 13.44 X10^3/uL (2.7-7.7); Neutrophil % 86.1 % (47-70); Platelet Count 234 K/mm3 (150-450); RBC Distribution Width CV 14.3 % (11.6-14.6); RBC Distribution Width SD 50.7 fl (35.1-43.9); Red Blood Count 3.75 M/mm3 (4.2-5.4); White Blood Count 15.6 K/mm3 (4.4-11.0)
[2018-03-31 08:20] LABS: Anion Gap 8 (5-15); BUN 10 mg/dL (7-18); BUN/Creat Ratio 11.9 RATIO (10-20); Calcium,Total 8.3 mg/dL (8.5-10.1); Chloride 107 mmol/L (98-107); Creatinine, Serum 0.84 mg/dL (0.55-1.02); EST Glomerular Filtration Rate 76 mL/min (>60); Est Glom Filt Rate - Afr Amer 91 mL/min (>60); Estimated Creatinine Clearance 62.98 ml/min; Glucose 87 mg/dL (74-106); Potassium 3.8 mmol/L (3.5-5.1); Sodium Level 144 mmol/L (136-145)
[2018-03-31 08:27] LABS: POSITIVE COUNT NO; POSITIVE DIFFERENTIAL NO; POSITIVE MORPHOLOGY NO
[2018-03-31] MEDS: guaiFENesin 1,200 MG Tablet 1200 MG PO ×2 (09:18→23:02)
[2018-03-31] MEDS: Multivitamins,Therapeutic Tablet 1 TABLET PO (09:18)
[2018-03-31] MEDS: Enoxaparin 40 MG/0.4 ML Syringe SC (09:18)
[2018-03-31] MEDS: Ceftriaxone 1 GM/50 ML BAG IV (09:18)
--- NOTE | 2018-03-31 09:56 | CASEMGMT ---
Social Work Note SW placed a call to pt's legal guardian Chelsi Mobleytrinonancy who is also pt's sister. Chelsi confirms that pt is from [facility] and pt lives with Manuela [facility] ([phone]). Chelsi confirms that pt is to return living with Manuela Henson once medically discharged. Chelsi states that if pt is discharged tomorrow she will be at work and staff at [facility] will have to call Chelsi's work which is [employer] at [phone]. Green sheet on chart. Plan: Pt to return to assisted/day care when medically cleared. Ada Yusuf COOK HELPER PASTRY, PLASMA PROCESSING TECHNICIAN
[2018-03-31] MEDS: Acetaminophen 650 MG/20 ML UDC PO (20:33)
[2018-03-31] MEDS: Atorvastatin Calcium 10 MG Tablet 5 MG PO (23:01)
[2018-03-31] MEDS: Gabapentin 100 MG Capsule PO (23:02)
[2018-03-31] MEDS: Escitalopram Oxalate 20 MG Tablet PO (23:02)
[2018-04-01] VITALS (7 sets, daily range): BP systolic 99–105; BP diastolic 44–67; PULSE 61–84; RESP 16–22; TEMP 36.4–37; O2SAT 94–97
[2018-04-01 06:44] LABS: Absolute Lymphocyte Count 1.67 X10^3/ul (0.83-4.51); Absolute Neutrophil Count 8.5 X10^3/uL (2.0-7.7); Basophil# 0.05 X10^3/uL; Basophil% 0.5 % (0-1); Eosinophil# 0.12 X10^3/uL; Eosinophils% 1.1 % (0-5); Hematocrit 38.2 % (37-47); Hemoglobin 12.2 g/dl (12.0-15.0); Lymphocyte # 1.67 X10^3/ul (4.0); Lymphocyte % 15.1 % (19-41); Mean Corp Hgb Conc 31.9 g/gl (32-36); Mean Corpuscular Hgb 31.8 pg (27.0-32.0); Mean Corpuscular Volume 99.5 fL (81-99); Mean Platelet Vol. 9.2 fl (6.2-12.0); Monocyte# 0.67 X10^3/uL; Monocyte% 6.1 % (0-10); Neutrophil # 8.53 X10^3/uL (2.7-7.7); Neutrophil % 77.1 % (47-70); Platelet Count 221 K/mm3 (150-450); RBC Distribution Width CV 14.5 % (11.6-14.6); Red Blood Count 3.84 M/mm3 (4.2-5.4); White Blood Count 11.1 K/mm3 (4.4-11.0)
[2018-04-01] MEDS: Levothyroxine 88 MCG Tablet PO (06:53)
[2018-04-01 06:57] LABS: POSITIVE COUNT NO; POSITIVE DIFFERENTIAL NO; POSITIVE MORPHOLOGY NO
[2018-04-01 07:12] LABS: Anion Gap 7 (5-15); BUN 10 mg/dL (7-18); Calcium,Total 8.3 mg/dL (8.5-10.1); Chloride 107 mmol/L (98-107); Creatinine, Serum 0.84 mg/dL (0.55-1.02); EST Glomerular Filtration Rate 76 mL/min (>60); Est Glom Filt Rate - Afr Amer 92 mL/min (>60); Estimated Creatinine Clearance 62.98 ml/min; Glucose 89 mg/dL (74-106); Potassium 3.9 mmol/L (3.5-5.1); Sodium Level 141 mmol/L (136-145)
--- NOTE | 2018-04-01 08:13 | PCM.PN.HOSP ---
Patient Problems: Active and Suspected Problems Pneumococcal pneumonia (Acute) Severe sepsis (Acute) Subjective: Patient doing well, more interactive and appears less fatigued since initial presentation. Patient does still seem uncomfortable with increased exertion and not at baseline yet. Discussed with family present and amenable to discharge to home likely 04/02/18 a.m. given inability for patient to follow good commands for deep inspiration and incentive spirometry. Patient without obvious and head nod to answers, fevers, chills, nausea, emesis, abdominal pain, chest pain or recurrent or worsened dyspnea. Objective: General: awake, alert, able to answer some yes/no questions with head nod, underlying MRDD, cooperative, seated upright in the bedside chair, NAD. Skin: normal color, turgor, no icterus, cyanosis. HEENT: AT/NC, EOMI, PERRLA, improved MMM. Lungs: Diminished BS BL, > bases, less coarse, improved effort, no rales, rhonchi or wheezing. Heart: Regular rate and rhythm; no gallop, rub audible. Abdomen: soft, NTTP, ND, normal BS. Extremities: no cyanosis, clubbing, or edema. Neurological: patient awake, alert, orientation difficult to assess w/ underlying MRDD; cognitive function possibly baseline intact, low baseline; pupils equally reactive to light and accomodation; cranial nerves II-XII grossly normal, moving all 4 extremities, no focal deficits, strength improving, moderately globally decreased secondary. Psychiatric: affect appears improved, no acute evidence of depressive or anxiety feelings. Vitals/I&O's: Vital Signs Temp Pulse Resp BP Pulse Ox 97.9 F 61 16 99/44 L 95 04/01/18 03:36 04/01/18 03:36 04/01/18 03:36 04/01/18 03:36 04/01/18 03:36 Oxygen Flow Rate (L/min) 2 Oxygen Delivery Method Room Air Weight: 111 lb Body Mass Index (BMI) 23.3 Intake and Output for Last 24 Hours 03/30/18 03/31/18 04/01/18 23:59 23:59 23:59 Intake Total 1316 / 1316 1237 / 1237 360 / 360 Output Total 150 / 150 100 / 100 600 / 600 Balance 1166 / 1166 1137 / 1137 -240 / -240 Microbiology Past 72 Hours 03/30/18 16:10 Urine, Clean Catch Urine Culture - Preliminary Gram negative srinivas 03/30/18 16:10 Urine, Clean Catch Streptococcus pneumoniae Antigen (M - Final Streptococcus pneumonia Ag 03/30/18 16:10 Urine, Clean Catch Legionella Antigen - Final Laboratory Results 03/31/18 07:30: WBC 15.6 H, RBC 3.75 L, Hgb 12.1, Hct 37.3, MCV 99.5 H, MCH 32.3 H, MCHC 32.4, RDW 14.3, RDW Differential 50.7 H, Plt Count 234, MPV 9.6, Immature Gran % (Auto) 0.300, Neut % (Auto) 86.1 H, Lymph % (Auto) 9.4 L, [place] % (Auto) 3.8, Eos % (Auto) 0.1, Baso % (Auto) 0.3, Absolute Neuts (auto) 13.4 H, Absolute Lymphs (auto) 1.47, Total Counted Not Reportable 03/31/18 07:30: Sodium 144, Potassium 3.8, Chloride 107, Carbon Dioxide 29.0, Anion Gap 8, BUN 10, Creatinine 0.84, Estim Creat Clear Calc 62.98, Est GFR (MDRD) Af Amer 91, Est GFR (MDRD) Non-Af 76, BUN/Creatinine Ratio 11.9, Glucose 87, Calcium 8.3 L 04/01/18 06:00: WBC 11.1 H, RBC 3.84 L, Hgb 12.2, Hct 38.2, MCV 99.5 H, MCH 31.8, MCHC 31.9 L, RDW 14.5, RDW Differential 53.0 H, Plt Count 221, MPV 9.2, Immature Gran % (Auto) 0.100, Neut % (Auto) 77.1 H, Lymph % (Auto) 15.1 L, [place] % (Auto) 6.1, Eos % (Auto) 1.1, Baso % (Auto) 0.5, Absolute Neuts (auto) 8.5 H, Absolute Lymphs (auto) 1.67, Total Counted Not Reportable 04/01/18 06:00: Sodium 141, Potassium 3.9, Chloride 107, Carbon Dioxide 27.0, Anion Gap 7, BUN 10, Creatinine 0.84, Estim Creat Clear Calc 62.98, Est GFR (MDRD) Af Amer 92, Est GFR (MDRD) Non-Af 76, BUN/Creatinine Ratio 12.0, Glucose 89, Calcium 8.3 L Current Medications Acetaminophen (Tylenol Liquid) 650 mg PO Q4H PRN PRN PRN Reason: FEVER Last Admin: 03/31/18 20:33 Dose: 650 mg Albuterol Sulfate (Ventolin Aerosols) 2.5 mg INHALATION Q2H PRN PRN Reason: SHORTNESS OF BREATH Albuterol/Ipratropium (Duoneb) 3 ml INHALATION Q4HWA.RT [facility] Last Admin: 04/01/18 07:25 Dose: Not Given Atorvastatin Calcium (Lipitor) 5 mg PO QHS [facility] Last Admin: 03/31/18 23:01 Dose: 5 mg Enoxaparin Sodium (Lovenox) 40 mg SC DAILY@1000 [facility] Last Admin: 03/31/18 09:18 Dose: 40 mg Escitalopram Oxalate (Lexapro) 20 mg PO QHS [facility] Last Admin: 03/31/18 23:02 Dose: 20 mg Gabapentin (Neurontin) 100 mg PO QHS [facility] Last Admin: 03/31/18 23:02 Dose: 100 mg Guaifenesin (Mucinex) 1,200 mg PO BID [facility] Last Admin: 03/31/18 23:02 Dose: 1,200 mg Ceftriaxone Sodium (Rocephin) 1 gm in 50 mls @ 100 mls/hr IV Q24 [facility] Last Admin: 03/31/18 09:18 Dose: 100 mls/hr Levothyroxine Sodium (Synthroid) 88 mcg PO DAILY@0600 [facility] Last Admin: 04/01/18 06:53 Dose: 88 mcg Magnesium Hydroxide (Milk Of Magnesia) 30 ml PO DAILY PRN PRN PRN Reason: Constipation Multivitamins (Multivitamin) 1 tablet PO DAILY@0800 [facility] Last Admin: 03/31/18 09:18 Dose: 1 tablet Sodium Chloride () 5 - 30 ml IV UD PRN PRN Reason: SALINE FLUSH Medical Necessity - Tobacco Use Smoking Status: Never smoker Tobacco Use: Non-smoker Assessment/Plan All Active Problems Pneumococcal pneumonia (Acute) Severe sepsis (Acute) Acute bronchitis (Acute) Pneumonia (Acute) The patient is a 52 y/o F w/ PMHx: Down Syndrome, HLD, Depression, Hypothyroidism who presents to the [facility] ED on 03/30/18 from [facility] with increased lethargy, productive cough, poor intake as well as onset fever times 24-48 hours prompting ED evaluation. (1) Severe Sepsis secondary to Streptococcal Pneumonia and ? #2: CXR without acute process, but clinically suspected PNA. Admission CBC w/ WBC 204. with L shift, LA 2.1-->1.5, RR > 20. Admitted to [place], maintain on oxygen with wean as tolerated to room air, continue ATC duonebs, PRN albuterol, maintained on IV Rocephin and Azithromycin-->03/31/18 rocephin only given + strep antigen, HOB, IS parameters w/ + strep urine antigens. Bld cx x 2 obtained in the ED. Repeat LA improved 1.5. 04/01/18 CBC w/ WBC 11.1 from 2013 upon admission, shift improved, afebrile. Given patient clinical improvement will plan discharge to home 04/02/18 to assure continued improvement given MRDD status, poor inspiratory effort, unable to effectively perform IS. Family amenable. (2) ? Acute Proteus UTI: Difficult to assess if symptomatic, UA was not marked appearing was decent sample, UCx w/ Proteus mirabilis and mixed gram-positive organisms, as noted maintained on regimen IV Rocephin and azithromycin for #1, await sensitivities. (3) Hypothyroidism: Continue home synthroid regimen. (4) Hyperlipidemia: Continue home statin regimen. (5) Depression: Continue home Lexapro regimen. (6) Down Syndrome: Living in nursing home, CM consultation, plan return once clinically appropriate. (7) DVT prophylaxis: SCD, Lovenox. Code Visit Inpatient E&M: 08052 Subs Hosp L2
[2018-04-01] MEDS: Ceftriaxone 1 GM/50 ML BAG IV (09:56)
[2018-04-01] MEDS: guaiFENesin 1,200 MG Tablet 1200 MG PO ×2 (09:56→21:55)
[2018-04-01] MEDS: Enoxaparin 40 MG/0.4 ML Syringe SC (09:56)
[2018-04-01] MEDS: Multivitamins,Therapeutic Tablet 1 TABLET PO (09:56)
[2018-04-01] MEDS: Ipratropium/Albuterol Sulfate 3 ML AMPUL.NEB INHALATION ×3 (11:07→18:10)
[2018-04-01] MEDS: Nystatin Powder 15gm Bottle 1 APPLIC TOPICAL ×2 (15:06→21:55)
[2018-04-01] MEDS: Atorvastatin Calcium 10 MG Tablet 5 MG PO (21:55)
[2018-04-01] MEDS: Gabapentin 100 MG Capsule PO (21:55)
[2018-04-01] MEDS: Escitalopram Oxalate 20 MG Tablet PO (21:55)
[2018-04-02] MEDS: Nystatin Powder 15gm Bottle 1 APPLIC TOPICAL (05:13)
[2018-04-02] MEDS: Levothyroxine 88 MCG Tablet PO (05:14)
[2018-04-02 05:19] VITALS: BP 94/46; PULSE 60; RESP 16; TEMP 36.4; O2SAT 96
[2018-04-02 05:43] LABS: Absolute Lymphocyte Count 1.54 X10^3/ul (0.83-4.51); Absolute Neutrophil Count 6.5 X10^3/uL (2.0-7.7); Basophil# 0.05 X10^3/uL; Basophil% 0.6 % (0-1); Eosinophil# 0.14 X10^3/uL; Eosinophils% 1.6 % (0-5); Hematocrit 38.7 % (37-47); Hemoglobin 12.7 g/dl (12.0-15.0); Lymphocyte # 1.54 X10^3/ul (4.0); Lymphocyte % 17.5 % (19-41); Mean Corp Hgb Conc 32.8 g/gl (32-36); Mean Corpuscular Hgb 32.3 pg (27.0-32.0); Mean Corpuscular Volume 98.5 fL (81-99); Mean Platelet Vol. 9.5 fl (6.2-12.0); Monocyte# 0.59 X10^3/uL; Monocyte% 6.7 % (0-10); Neutrophil # 6.48 X10^3/uL (2.7-7.7); Neutrophil % 73.4 % (47-70); Platelet Count 259 K/mm3 (150-450); RBC Distribution Width CV 14.1 % (11.6-14.6); RBC Distribution Width SD 49.8 fl (35.1-43.9); Red Blood Count 3.93 M/mm3 (4.2-5.4); White Blood Count 8.8 K/mm3 (4.4-11.0)
[2018-04-02 05:50] LABS: POSITIVE COUNT NO; POSITIVE DIFFERENTIAL NO; POSITIVE MORPHOLOGY NO
[2018-04-02 05:58] LABS: Anion Gap 7 (5-15); BUN 13 mg/dL (7-18); BUN/Creat Ratio 16.2 RATIO (10-20); Calcium,Total 8.6 mg/dL (8.5-10.1); Chloride 106 mmol/L (98-107); EST Glomerular Filtration Rate 80 mL/min (>60); Est Glom Filt Rate - Afr Amer 97 mL/min (>60); Estimated Creatinine Clearance 66.13 ml/min; Glucose 91 mg/dL (74-106); Potassium 3.8 mmol/L (3.5-5.1); Sodium Level 142 mmol/L (136-145)
[2018-04-02 07:28] VITALS: PULSE 70; RESP 20
[2018-04-02] MEDS: Ipratropium/Albuterol Sulfate 3 ML AMPUL.NEB INHALATION ×2 (07:30→11:06)
[2018-04-02 09:09] VITALS: BP 134/72; PULSE 63; RESP 16; TEMP 36.4; O2SAT 96
--- NOTE | 2018-04-02 09:25 | DCINST_ITS ---
- Discharge Diagnoses Current Active Problems: Current Active and Chronic Problems (1) Severe Sepsis secondary to Streptococcal Pneumonia and ? #2 (2) ? Acute Proteus UTI (asymptomatic, but difficult given MRDD, no verbal status baseline) (3) Hypothyroidism (4) Hyperlipidemia (5) Depression (6) Down Syndrome You will use the following diet at home:: Regular, Other - Continue with diet per Facility. Your food should be the consistency of: Regular Your liquids should be the consistency of: Regular/Thin Discharge Activity: Return to Normal Activity, - - Encourage head of bed, out of bed to chair with all meals. Weight Bearing Status: Weight bearing as tolerated Call your doctor if you observe: Fever of 101 or Higher, Inability to urinate, Inability to have a bowel movement, Shortness of breath, Fainting spells, Chest pain, Uncontrolled pain Instructions: What Is Pneumonia?, Preventing Pneumonia, Pneumonia Treatment Additional Instructions: Please continue the nystatin regimen to her neck region until completely resolved. It is important to keep this region clean and dry. Allergies/Adverse Reactions: Allergies Sulfa (Sulfonamide Antibiotics) Allergy (Verified 03/30/18 15:08) Rash lactose Adverse Reaction (Verified 03/30/18 15:08) Diarrhea Medications to take at Discharge Escitalopram Oxalate [Lexapro] 20 mg PO QHS 01/04/16 Levothyroxine [Synthroid] 88 mcg PO DAILY 01/04/16 Simvastatin [Zocor] 5 mg PO QHS 01/04/16 Gabapentin [Neurontin] 100 mg PO QHS 05/01/17 Multivitamin,Therapeutic [Thera] 1 each PO DAILY 09/28/17 Chlorpheniramine Maleate 4 mg PO Q6H 03/30/18 Ensure Clear 120 ml PO BID 03/30/18 Sennosides/Docusate Sodium [Docusate Sodium-Sennosides Tab] 1 each PO BID 03/30/18 Albuterol IH (ProAir) [Proair Hfa] 1 - 2 puff INHALATION Q4H PRN PRN #1 inhaler 04/02/18 Cefdinir [Omnicef [equiv]] 300 mg PO Q12H #14 capsule 04/02/18 Guaifenesin [Mucinex] 1,200 mg PO BID #20 tablet 04/02/18 Nystatin Powder [Mycostatin Powder] 1 applic TOPICAL TID #1 bottle 04/02/18 The following prescriptions were given: Albuterol IH (ProAir) [Proair Hfa] 1 - 2 puff INHALATION Q4H PRN PRN #1 inhaler PRN Reason: dyspnea, wheezing. Cefdinir [Omnicef [equiv]] 300 mg PO Q12H #14 capsule Guaifenesin [Mucinex] 1,200 mg PO BID #20 tablet Nystatin Powder [Mycostatin Powder] 1 applic TOPICAL TID #1 bottle Primary Care Physician: Lazaro Serna MD [Primary Care Provider] - Please follow up with your Primary Care Physician in: Follow-up within 3-5 days to review admission. Test Results: Test results from this visit will be discussed in further detail at your follow- up appointment, if applicable. Proposed Discharge Date: 04/02/18
--- NOTE | 2018-04-02 09:25 | PCM.DC.SUM ---
Discharge Date and Diagnosis Date of Admission: 03/30/18 Date of Discharge: 04/02/18 - Primary Discharge Diagnosis Active and Suspected Problems (1) Severe Sepsis secondary to Streptococcal Pneumonia and ? #2 (2) ? Acute Proteus UTI (asymptomatic, but difficult given MRDD, no verbal status baseline), present on admission (3) Hypothyroidism (4) Hyperlipidemia (5) Depression (6) Down Syndrome - Secondary Discharge Diagnosis Chronic Problems Down syndrome (Chronic) HLD (hyperlipidemia) (Chronic) Depression (Chronic) Hospital Course and Treatment Operations: None Procedures: EKG Summary of Care Provided: The patient is a 52 y/o F w/ PMHx: Down Syndrome, HLD, Depression, Hypothyroidism who presented to the [facility] ED [facility] 03[facility] with increased lethargy, productive cough, poor intake as well as onset fever times 24-48 hours prompting ED evaluation. CXR without acute process, but clinically suspected PNA. Admission CBC w/ WBC 204. with L shift, LA 2.1-->1.5, RR > 20. Admitted to AL, maintained on oxygen with wean as tolerated to room air, continue ATC duonebs, PRN albuterol, maintained on IV Rocephin and Azithromycin-->03/31/18 rocephin only given + strep antigen, HOB, IS parameters w/ + strep urine antigens. Bld cx x 2 obtained in the ED without growth. Repeat LA improved 1.5. 04/01/18 CBC w/ WBC 11.1 from 2013 upon admission, shift improved, afebrile-->04/02/18 CBC w/ WBC 8.8 with resolved shift. Given patient clinical improvement discharged to prison in stable, improved condition with oral omicef transition to complete abx therapy. UA notable, UCx w/ Proteus, given unable to verbalize, unclear if symptomatic and true acute UTI, treated w/ abx for concurrent PNA as noted regardless. Patient discharged w/ recommended follow-up with PCP within 3-5 days to review admission. DAY OF DISCHARGE PROGRESS NOTE: Subjective: Patient without acute event overnight per self and nursing report. Patient upon nod communication denies or there was no obvious evidence of fever, chills, nausea, emesis, abdominal pain, chest pain or dyspnea. Patient agreeable to discharge to prison. Patient will be discharged with follow-up with primary care physician within 3-5 days. Objective: T 97.5, heart rate 63, BP 134/72, respiratory rate 16, 96% on room air. General: awake, alert, able to answer some yes/no questions with head nod, underlying MRDD, cooperative, seated upright in the bedside chair, NAD. Skin: normal color, turgor, no icterus, cyanosis, improving intertrigo neck folds secondary to chronic neck positioning. HEENT: AT/NC, EOMI, PERRLA, improved MMM. Lungs: Diminished BS BL, > bases, less coarse, improved effort, no rales, rhonchi or wheezing. Heart: Regular rate and rhythm; no gallop, rub audible. Abdomen: soft, NTTP, ND, normal BS. Extremities: no cyanosis, clubbing, or edema. Neurological: patient awake, alert, orientation difficult to assess w/ underlying MRDD; cognitive function possibly baseline intact, low baseline; pupils equally reactive to light and accomodation; cranial nerves II-XII grossly normal, moving all 4 extremities, no focal deficits, strength improving, moderately globally decreased secondary. Psychiatric: affect appears improved, no acute evidence of depressive or anxiety feelings. Assessment and Plan: Please see hospital summary above. Discharge Activity: Return to Normal Activity, - - Encourage head of bed, out of bed to chair with all meals. Weight Bearing Status: Weight bearing as tolerated Call your doctor if you observe: Fever of 101 or Higher, Inability to urinate, Inability to have a bowel movement, Shortness of breath, Fainting spells, Chest pain, Uncontrolled pain Home Medications: Medications to take at Discharge Escitalopram Oxalate [Lexapro] 20 mg PO QHS 01/04/16 Levothyroxine [Synthroid] 88 mcg PO DAILY 01/04/16 Simvastatin [Zocor] 5 mg PO QHS 01/04/16 Gabapentin [Neurontin] 100 mg PO QHS 05/01/17 Multivitamin,Therapeutic [Thera] 1 each PO DAILY 09/28/17 Chlorpheniramine Maleate 4 mg PO Q6H 03/30/18 Ensure Clear 120 ml PO BID 03/30/18 Sennosides/Docusate Sodium [Docusate Sodium-Sennosides Tab] 1 each PO BID 03/30/18 Albuterol IH (ProAir) [Proair Hfa] 1 - 2 puff INHALATION Q4H PRN PRN #1 inhaler 04/02/18 Cefdinir [Omnicef [equiv]] 300 mg PO Q12H #14 capsule 04/02/18 Guaifenesin [Mucinex] 1,200 mg PO BID #20 tablet 04/02/18 Nystatin Powder [Mycostatin Powder] 1 applic TOPICAL TID #1 bottle 04/02/18 Following Prescrptions Were Given to Patient: Albuterol IH (ProAir) [Proair Hfa] 1 - 2 puff INHALATION Q4H PRN PRN #1 inhaler PRN Reason: dyspnea, wheezing. Cefdinir [Omnicef [equiv]] 300 mg PO Q12H #14 capsule Guaifenesin [Mucinex] 1,200 mg PO BID #20 tablet Nystatin Powder [Mycostatin Powder] 1 applic TOPICAL TID #1 bottle Primary Care Physician: Lazaro Serna MD [Primary Care Provider] - Please follow up with your Primary Care Physician in: Follow-up within 3-5 days to review admission. Patient Instructions: What Is Pneumonia?, Preventing Pneumonia, Pneumonia Treatment Disposition: Jail Minutes spent on discharge:: 35 Patient Condition:: Fair Medical Necessity - Tobacco Use Smoking Status: Never smoker Tobacco Use: Non-smoker Meaningful Use Info Meaningful Use Diagnoses (Choose all that apply): None applicable Code Visit Inpatient E&M: 50443 Disch Hosp
[2018-04-02] MEDS: Multivitamins,Therapeutic Tablet 1 TABLET PO (09:41)
[2018-04-02] MEDS: guaiFENesin 1,200 MG Tablet 1200 MG PO (09:43)
[2018-04-02] MEDS: Enoxaparin 40 MG/0.4 ML Syringe SC (10:06)
[2018-04-02] MEDS: Ceftriaxone 1 GM/50 ML BAG IV (10:09)
[2018-04-02] MEDS: Acetaminophen 650 MG/20 ML UDC PO (10:22)
[2018-04-02 11:06] VITALS: PULSE 80; RESP 22
--- NOTE | 2018-04-02 11:07 | CASEMGMT ---
Social Work Note Physician is discharging pt today. Per previous notes pt is from care home/day care. MILENA spoke with RN Bronwyn who states she has all the paperwork for pt and can get pt ready for discharge. MILENA placed a call to pt's caregiver Manuela Henson who states she is able to come get pt to transport home today. MILENA placed a call to pt's legal guardian and sister Chelsi and left her a message updating her that pt is being discharged today and Manuela will be transporting pt. Plan: Pt to discharge back to care home/day care with her caregiver Manuela Henson transporting pt. Ada Yusuf ENVIRONMENTAL COMPLIANCE ENGINEER, PRODUCTION ASSOCIATE
== END 2018-04-02 12:04 | disposition home or self-care (01) | DRG 871 ==
LOC: ED 16:00 → MS3 17:12
PROVIDERS: Emergency Provider Emergency Medicine; Family Provider Internal Medicine; PCP Internal Medicine; Visit Provider Family Medicine
DX: A40.3 Sepsis due to Streptococcus pneumoniae (principal); A41.89 Other specified sepsis; J13 Pneumonia due to Streptococcus pneumoniae; R65.20 Severe sepsis without septic shock; N39.0 Urinary tract infection, site not specified; B96.4 Proteus (mirabilis) (morganii) as the cause of diseases classified elsewhere; Q90.9 Down syndrome, unspecified; E03.9 Hypothyroidism, unspecified; F32.9 Major depressive disorder, single episode, unspecified; E78.5 Hyperlipidemia, unspecified; R13.10 Dysphagia, unspecified
CPT/HCPCS: 36415; 71045; 80048; 80053; 81001; 83605; 85025; 85610; 85730; 87040; 87077; 87086; 87088; 87449; 93005; 94640; 94667; 99285; J7030; A4216

== ENCOUNTER 2018-05-16 10:31 | Inpatient (IN) | payer MEDICARE, MEDICAID, SELFPAY ==
[2018-05-16] VITALS (7 sets, daily range): BP systolic 106–130; BP diastolic 58–81; PULSE 85–106; RESP 16–24; TEMP 36.8–37.9; O2SAT 94–98; BMI 26.9; BMI 25.2; BMI 25.3
--- NOTE | 2018-05-16 11:16 | EKG12_ITS ---
Test Reason : DYSRHYTHMIA Blood Pressure : / mmHG Vent. Rate : 099 BPM Atrial Rate : 099 BPM P-R Int : 120 ms QRS Dur : 086 ms QT Int : 350 ms P-R-T Axes : 028 073 -05 degrees QTc Int : 449 ms Normal sinus rhythm T wave abnormality, consider inferior ischemia Abnormal ECG Confirmed by DAIN FISH, CLARIBEL ([id number]), assistant film editor CARY GANNON ([id number]) on 05/18/2018 12:03:00 PM Referred By: TREVOR Confirmed By:CLARIBEL GAUTAM MD
--- NOTE | 2018-05-16 11:17 | RAD_ITS ---
STUDY: X-RAY CHEST REASON FOR EXAM: Female, 52 years old. Cough, chest congestion and fever. TECHNIQUE: Single AP portable view of the chest. COMPARISON: Comparison is made with prior study dated March 30, 2018. FINDINGS: Hyperinflation. Mild increased linear markings at the lung bases suggestive of a mild atelectasis. There is no demonstrated pleural abnormality. Normal size heart. Normal mediastinum and cherise. Normal visualized pulmonary arteries. Normal visualized aortic arch and descending thoracic aorta. Normal visualized thoracic spine. Normal visualized ribs, clavicles, and shoulders. There is no demonstrated abnormality of the visualized soft tissue structures of the upper abdomen. RAD/Chest 1 View (Portable) IMPRESSION: Hyperinflation. Mild increased markings at the lung bases suggestive of linear atelectasis. Electronically Signed: Maxim Kapoor MD at 12:30 EST Tel [phone], Service support ,
[2018-05-16 11:41] LABS: Absolute Lymphocyte Count 1.09 X10^3/ul (0.83-4.51); Basophil# 0.06 X10^3/uL; Basophil% 0.3 % (0-1); Eosinophil# 0.03 X10^3/uL; Eosinophils% 0.2 % (0-5); Hematocrit 43.5 % (37-47); Hemoglobin 14.3 g/dl (12.0-15.0); Lymphocyte # 1.09 X10^3/ul (4.0); Lymphocyte % 5.9 % (19-41); Mean Corp Hgb Conc 32.9 g/gl (32-36); Mean Corpuscular Volume 100.5 fL (81-99); Mean Platelet Vol. 9.5 fl (6.2-12.0); Monocyte# 1.06 X10^3/uL; Monocyte% 5.8 % (0-10); Neutrophil # 16.03 X10^3/uL (2.7-7.7); Neutrophil % 87.5 % (47-70); Platelet Count 262 K/mm3 (150-450); RBC Distribution Width CV 15.1 % (11.6-14.6); RBC Distribution Width SD 55.6 fl (35.1-43.9); Red Blood Count 4.33 M/mm3 (4.2-5.4); White Blood Count 18.3 K/mm3 (4.4-11.0)
[2018-05-16 11:42] LABS: POSITIVE COUNT NO; POSITIVE DIFFERENTIAL NO; POSITIVE MORPHOLOGY NO
[2018-05-16 11:53] LABS: Anion Gap 8 (5-15); BUN 9 mg/dL (7-18); BUN/Creat Ratio 9.3 RATIO (10-20); Chloride 100 mmol/L (98-107); Creatinine, Serum 0.97 mg/dL (0.55-1.02); EST Glomerular Filtration Rate 64 mL/min (>60); Est Glom Filt Rate - Afr Amer 78 mL/min (>60); Estimated Creatinine Clearance 58.96 ml/min; Glucose 117 mg/dL (74-106); Potassium 4.1 mmol/L (3.5-5.1); Sodium Level 138 mmol/L (136-145)
--- NOTE | 2018-05-16 13:21 | ED.RN ---
PT REQUIRED MULTIPLE STAFF FOR STRAIGHT CATHETER. PT WAS UNWILLING TO OPEN HER LEGS FOR THE PROCEDURE RELATED TO A LACK OF UNDERSTANDING. PT IS MRDD WITH CARE PROVIDER AT BEDSIDE. NO S/S OF DISTRESS POST PROCEDURE. Quentin PADGETT RN. [id number]
[2018-05-16] MEDS: 0.9% Normal Saline 1,000 ML 999 ML IV (13:22)
[2018-05-16 13:30] LABS: Bacteria 0 SEEN /hpf (None Seen); Mucous, Urine 0 SEEN /hpf (<or=2+); Red Blood Cells-Urine 0 SEEN /hpf (0-5); Squamous Epithelial Cells - UA 0 SEEN /hpf (5-10)
[2018-05-16 13:43] LABS: Color, Urine Yellow (Yellow); Glucose, Dipstick Normal (Normal); Ketone-Dipstick Negative (Negative); Leukocyte Esterase-Dipstick 25 /ul (Negative); Nitrite-Dipstick Negative (Negative); Occult Blood-Urine Negative /ul (Negative); Protein-Dipstick Negative (Negative); Specific Gravity, Urine 1.005 (1.002-1.030); Urine Bilirubin Dipstick Negative (Negative); Urine Clarity Clear (Clear); Urine Urobilinogen Normal (Normal)
--- NOTE | 2018-05-16 14:01 | CT_ITS ---
STUDY: CT ABDOMEN AND PELVIS WITHOUT CONTRAST REASON FOR EXAM: Female, 52 years old. Flank pain. Low-grade fever. Decreased appetite. RADIATION DOSAGE (If Supplied By Facility): CTDIvol = ( 11.98 ) mGy, DLP = ( 511.57 ) mGycm TECHNIQUE: Transaxial images were obtained from the dome of the diaphragm to the symphysis pubis without oral contrast, and without intravenous contrast. Sagittal and coronal images were reconstructed. Individualized dose optimization techniques were used for this CT. COMPARISON: None. FINDINGS: The visualized lung bases are unremarkable. The visualized portions of the heart are within normal limits. Hepatomegaly. Normal gallbladder and extrahepatic biliary system. Normal spleen. Normal pancreas. Normal bilateral adrenal glands. Punctate nonobstructive calculus in the mid lower pole calyx of the right. Punctate nonobstructive calculus in the midportion of the left punctate calcification in the lower pole calyx Normal visualized stomach. Normal small intestine. Normal colon. The appendix is visualized and appears normal. Normal abdominal aorta. Normal inferior vena cava. Normal retroperitoneum. There is a mild degree of diffuse bladder wall thickening. There is absence of the uterus consistent with a prior hysterectomy. There is a moderate-sized umbilical hernia containing fat. The neck of the hernia measures 1.8 cm. Normal osseous structures. CT/Abdomen/Pelvis without Cont IMPRESSION: Hepatomegaly. Bladder wall thickening. The liver containing fat. Electronically Signed: Maxim Kapoor MD at 15:07 EST Tel [phone], Service support ,
[2018-05-16 14:12] LABS: White Blood Cells 0-5 SEEN /hpf (0-5)
[2018-05-16 14:34] LABS: Lactic Acid 1.3 mmol/L (0.4-2.0)
--- NOTE | 2018-05-16 16:06 | ED.VISSUMM ---
- ER Visit Summary Date of Service: 05/16/18 Chief Complaint: Cough and fever History of Present Illness: The patient is a 52 F presenting from a long term with concern for aspiration pneumonia. She is on a thickened diet at baseline and developed frequent aspiration pneumonia and severe sepsis. She has been having productive cough for several days as well as fever, decreased activity, and generalized weakness. Physical Examination: He does have a slight fever here. Pulse oximetry is normal. Breath sounds are diminished bilaterally. Mucous members are dry. Abdomen is soft and nontender. She has a superficial pressure ulcer on her buttocks but no evidence of cellulitis. She is at her baseline mental status now according to her family. Test Results: Initial white blood cell count was 18,300. Lactic acid was normal however at 1.3. Influenza swab negative. Urinalysis unremarkable. Blood and urine cultures both sent. Initial chest x-ray negative. She has been being followed for hernia and her family thought that they noted her to have abdominal discomfort so after discussion with him, we did image her abdomen. There is no evidence of acute process and no evidence of pneumonia at the lung bases. Emergency Department Course and Treatment: With no other cause found, presumably this is an aspiration pneumonia. She was given IV Unasyn. I discussed the case with the hospitalist. Given her multiple comorbidities, dietary restrictions, and ill appearance, we do feel that hospitalization is indicated and she appears to qualify for full admission. Treatment Plan: IV Unasyn, admit for pulse oximetry monitoring and breathing treatments Disposition: Admission Impression: Initial encounter sepsis, initial encounter probable aspiration pneumonia This note was generated with [employer] dictation software. It may contain incorrect words, spelling, and punctuation that were not noted in review of the chart prior to signing ED Disposition - Plan for ED Patient: Chief Complaint: Shortness of Breath Referrals: Lazaro Serna MD [Primary Care Provider] -
--- NOTE | 2018-05-16 16:09 | NURSING ---
MED SURG TERELETSKY ASPIRATION PNEUMOINIA, SEPSIS
--- NOTE | 2018-05-16 16:13 | ED.DCSUM_ITS ---
- ER Visit Summary Date of Service: 05/16/18 Chief Complaint: Cough and fever History of Present Illness: The patient is a 52 F presenting [facility] a jail with concern for aspiration pneumonia. She is on a thickened diet at baseline and developed frequent aspiration pneumonia and severe sepsis. She has been having productive cough for several days as well as fever, decreased activity, and generalized weakness. Physical Examination: He does have a slight fever here. Pulse oximetry is normal. Breath sounds are diminished bilaterally. Mucous members are dry. Abdomen is soft and nontender. She has a superficial pressure ulcer on her buttocks but no evidence of cellulitis. She is at her baseline mental status now according to her family. Test Results: Initial white blood cell count was 18,300. Lactic acid was normal however at 1.3. Influenza swab negative. Urinalysis unremarkable. Blood and urine cultures both sent. Initial chest x-ray negative. She has been being followed for hernia and her family thought that they noted her to have abdominal discomfort so after discussion with him, we did image her abdomen. There is no evidence of acute process and no evidence of pneumonia at the lung bases. Emergency Department Course and Treatment: With no other cause found, presumably this is an aspiration pneumonia. She was given IV Unasyn. I discussed the case with the hospitalist. Given her multiple comorbidities, dietary restrictions, and ill appearance, we do feel that hospitalization is indicated and she appears to qualify for full admission. Treatment Plan: IV Unasyn, admit for pulse oximetry monitoring and breathing treatments Disposition: Admission Impression: Initial encounter sepsis, initial encounter probable aspiration pneumonia This note was generated with [employer] dictation software. It may contain incorrect words, spelling, and punctuation that were not noted in review of the chart prior to signing ED Disposition - Plan for ED Patient: Chief Complaint: Shortness of Breath Referrals: Lazaro Serna MD [Primary Care Provider] -
--- NOTE | 2018-05-16 16:32 | ED.RN ---
CALLED PHARMACY FOR UNASYN. NOT IN DEPARTMENT PRIOR TO TRANSFER TO THE FLOOR. MEDICATION WILL BE SENT TO THE FLOOR TO START. Quentin PADGETT RN [id number]
--- NOTE | 2018-05-16 16:58 | PCM.HP.STD ---
Problem List (1) Sepsis Status: Acute (2) Aspiration into airway Status: Acute (3) Dysphagia Status: Chronic (4) Down syndrome Status: Chronic (5) HLD (hyperlipidemia) Status: Chronic History of Present Illness Date of Admission: 05/16/18 Chief Complaint: cough, fever The patient is a 52 year old F with pmhx of MRDD 2/2 Downs, dysphagia and aspiration, macroglossia, hypothyroidism, hld, who presents to the ER with c/o cough and fever for the past 2 days at the correction. Pt is noncommunicative and hx obtained from caregiver. She has been having increased cough and fever. She has significant dysphagia and is on a modified diet. She has not had her swallow function re-evaluated in several years. Apparently there has been discussion in the past concerning her poor swallow function but continued eating was suggested for quality of life. She appears comfortable in bed, nontoxic. CXR shows atelectasis. Her guardian does not feel comfortable taking her back to the house with ongoing swallowing issues and possible complications developing if she continues to feed her, and feels she may need to go to a assisted from the hospital. [] Past Medical History Past Medical History (Chronic Problems): Chronic Problems Dysphagia (Chronic) Down syndrome (Chronic) HLD (hyperlipidemia) (Chronic) Depression (Chronic) Allergies Sulfa (Sulfonamide Antibiotics) Allergy (Verified 05/16/18 10:35) Rash lactose Adverse Reaction (Verified 05/16/18 10:35) Diarrhea Home Medications: Ambulatory Orders Medication Instructions Recorded Escitalopram Oxalate [Lexapro] 20 mg PO QHS 01/04/16 Levothyroxine [Synthroid] 88 mcg PO DAILY 01/04/16 Simvastatin [Zocor] 5 mg PO QHS 01/04/16 Gabapentin [Neurontin] 100 mg PO QHS 05/01/17 Multivitamin,Therapeutic [Thera] 1 each PO DAILY 09/28/17 Chlorpheniramine Maleate 4 mg PO TID 03/30/18 Ensure Clear 120 ml PO BID 03/30/18 Sennosides/Docusate Sodium 1 each PO BID 03/30/18 [Docusate Sodium-Sennosides Tab] Albuterol IH (ProAir) [Proair Hfa] 1 - 2 puff INHALATION Q4H PRN PRN 10/08/18 #1 inhaler Guaifenesin [Mucinex] 1,200 mg PO BID #20 tablet 04/02/18 Nystatin Powder [Mycostatin Powder] 1 applic TOPICAL TID #1 bottle 04/02/18 Ibuprofen 200 mg PO QHS PRN 05/16/18 Surgical History: - - partial hysterectomy Psychiatric History: Depression PENCILLER History: No pertinent PENCILLER history Lives: - - correction Smoking Status: Never smoker Tobacco Use: Non-smoker Alcohol: None Drugs: None - *Family History Maternal History Items: Dementia Paternal History Items: Stroke Review of Systems Cardiovascular: Denies: Palpitations Respiratory: Reports: Cough Musculoskeletal: Denies: Joint Pain Psychiatric: Denies: Homicidal Ideations, Suicidal Ideations Unable to obtain accurate/complete ROS d/t: MRDD non communicative VTE Information - Inpt Only VTE Present on Admission: No VTE Mechan Device Prophylaxis: None VTE Pharm Prophylaxis ordered?: Yes Patient Problems: Active and Suspected Problems Aspiration into airway (Acute) Sepsis (Acute) - Physical Exam General: Alert, Oriented x3, Cooperative HEENT: Atraumatic, PERRLA, EOMI, Normocephalic Neck: Supple, No JVD, Negative Carotid Bruits Lungs: Diminished Cardiovascular: Regular rate, No murmurs Abdomen: Bowel Sounds Present, Soft, Non Tender Extremities: No edema, Capillary Refill Less than 3 Seconds Skin: No rashes, No breakdown Musculoskeletal: No Tenderness to Palpation of Joints or Extremities Neurological: Cranial nerves II-XII grossly intact Psych/Mental Status: Normal Affect, Appropriate Vital Signs Temp Pulse Resp BP Pulse Ox 100.3 F H 95 16 118/74 97 05/16/18 16:55 05/16/18 16:55 05/16/18 16:55 05/16/18 16:55 05/16/18 16:55 Oxygen Delivery Method Room Air Weight: 112 lb 10.499 oz Body Mass Index (BMI) 25.2 Microbiology Past 72 Hours 05/16/18 11:35 Influenza Types A,B Direct FA (MADALYN) - Final Mucosa - Nasopharyngeal Laboratory Tests Past 24 Hrs 05/16/18 05/16/18 05/16/18 11:30 11:30 13:19 WBC 18.3 H RBC 4.33 Hgb 14.3 Hct 43.5 MCV 100.5 H MCH 33.0 H MCHC 32.9 RDW 15.1 H RDW Differential 55.6 H Plt Count 262 MPV 9.5 Immature Gran % (Auto) 0.300 Neut % (Auto) 87.5 H Lymph % (Auto) 5.9 L [place] % (Auto) 5.8 Eos % (Auto) 0.2 Baso % (Auto) 0.3 Absolute Neuts (auto) 16.0 H Absolute Lymphs (auto) 1.09 Total Counted Not Reportable Sodium 138 Potassium 4.1 Chloride 100 Carbon Dioxide 30.0 Anion Gap 8 BUN 9 Creatinine 0.97 Estim Creat Clear Calc 58.96 Est GFR (MDRD) Af Amer 78 Est GFR (MDRD) Non-Af 64 BUN/Creatinine Ratio 9.3 L Glucose 117 H Lactic Acid Calcium 9.0 Urine Color Yellow Urine Clarity Clear Urine pH 7.0 Ur Specific [place] 1.005 Urine Protein Negative Urine Glucose (UA) Normal Urine Ketones Negative Urine Occult Blood Negative Urine Nitrite Negative Urine Bilirubin Negative Urine Urobilinogen Normal Ur Leukocyte Esterase 25 H Urine RBC 0 SEEN Urine WBC 0-5 SEEN Ur Squamous Epith Cells 0 SEEN Urine Bacteria 0 SEEN Urine Mucus 0 SEEN 05/16/18 14:00 WBC RBC Hgb Hct MCV MCH MCHC RDW RDW Differential Plt Count MPV Immature Gran % (Auto) Neut % (Auto) Lymph % (Auto) [place] % (Auto) Eos % (Auto) Baso % (Auto) Absolute Neuts (auto) Absolute Lymphs (auto) Total Counted Sodium Potassium Chloride Carbon Dioxide Anion Gap BUN Creatinine Estim Creat Clear Calc Est GFR (MDRD) Af Amer Est GFR (MDRD) Non-Af BUN/Creatinine Ratio Glucose Lactic Acid 1.3 Calcium Urine Color Urine Clarity Urine pH Ur Specific [place] Urine Protein Urine Glucose (UA) Urine Ketones Urine Occult Blood Urine Nitrite Urine Bilirubin Urine Urobilinogen Ur Leukocyte Esterase Urine RBC Urine WBC Ur Squamous Epith Cells Urine Bacteria Urine Mucus Assessment/Plan All Active Problems Pneumococcal pneumonia (Acute) Severe sepsis (Acute) Aspiration into airway (Acute) Sepsis (Acute) Acute bronchitis (Acute) Pneumonia (Acute) 1. Acute sepsis 2/2 presumed aspiration pna - no infiltrate on cxr. leukocytosis, tachycardia, tachypnea. Not hypoxic/SOB. Has severe dysphagia. Start unasyn. NPO, speech evals. Check urine antigens. Continue mucinex. 2. Dysphagia - if pt is chronically aspirating she likely either needs PEG tube or comfort care. 3. MRDD/Downs - lives in correction, caregiver does not feel comfortable caring for her. 4. Depression - ssri 5. HLD - statin 6. Hypothyroid - synthroid DVT ppx: lovenox DC planning: SNF. Guardian is sister - not present. This patient was seen by Brady Lux PA-C under the supervision of Doctor Gómez.
--- NOTE | 2018-05-16 17:03 | HP.PCM_ITS ---
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 Pt is noncommunicative and hx obtained from caregiver. She has been having increased cough and fever. She has significant dysphagia and is on a modified diet. She has not had her swallow function re-evaluated in several years. Apparently there has been discussion in the past concerning her poor swallow function but continued eating was suggested for quality of life. She appears comfortable in bed, nontoxic. CXR shows atelectasis. Her guardian does not feel comfortable taking her back to the house with ongoing swallowing issues and possible complications developing if she continues to feed her, and feels she may need to go to a group home from the hospital. [] Past Medical History Past Medical History (Chronic Problems): Chronic Problems Dysphagia (Chronic) Down syndrome (Chronic) HLD (hyperlipidemia) (Chronic) Depression (Chronic) Allergies Sulfa (Sulfonamide Antibiotics) Allergy (Verified 05/16/18 10:35) Rash lactose Adverse Reaction (Verified 05/16/18 10:35) Diarrhea Home Medications: Ambulatory Orders Medication Instructions Recorded Escitalopram Oxalate [Lexapro] 20 mg PO QHS 01/04/16 Levothyroxine [Synthroid] 88 mcg PO DAILY 01/04/16 Simvastatin [Zocor] 5 mg PO QHS 01/04/16 Gabapentin [Neurontin] 100 mg PO QHS 05/01/17 Multivitamin,Therapeutic [Thera] 1 each PO DAILY 09/28/17 Chlorpheniramine Maleate 4 mg PO TID 03/30/18 Ensure Clear 120 ml PO BID 03/30/18 Sennosides/Docusate Sodium 1 each PO BID 03/30/18 [Docusate Sodium-Sennosides Tab] Albuterol IH (ProAir) [Proair Hfa] 1 - 2 puff INHALATION Q4H PRN PRN 10/08/18 #1 inhaler Guaifenesin [Mucinex] 1,200 mg PO BID #20 tablet 04/02/18 Nystatin Powder [Mycostatin Powder] 1 applic TOPICAL TID #1 bottle 04/02/18 Ibuprofen 200 mg PO QHS PRN 05/16/18 Surgical History: - - partial hysterectomy Psychiatric History: Depression LOTTERIES AGENT History: No pertinent LOTTERIES AGENT history Lives: - - snf Smoking Status: Never smoker Tobacco Use: Non-smoker Alcohol: None Drugs: None - *Family History Maternal History Items: Dementia Paternal History Items: Stroke Review of Systems Cardiovascular: Denies: Palpitations Respiratory: Reports: Cough Musculoskeletal: Denies: Joint Pain Psychiatric: Denies: Homicidal Ideations, Suicidal Ideations Unable to obtain accurate/complete ROS d/t: MRDD non communicative VTE Information - Inpt Only VTE Present on Admission: No VTE Mechan Device Prophylaxis: None VTE Pharm Prophylaxis ordered?: Yes Patient Problems: Active and Suspected Problems Aspiration into airway (Acute) Sepsis (Acute) - Physical Exam General: Alert, Oriented x3, Cooperative HEENT: Atraumatic, PERRLA, EOMI, Normocephalic Neck: Supple, No JVD, Negative Carotid Bruits Lungs: Diminished Cardiovascular: Regular rate, No murmurs Abdomen: Bowel Sounds Present, Soft, Non Tender Extremities: No edema, Capillary Refill Less than 3 Seconds Skin: No rashes, No breakdown Musculoskeletal: No Tenderness to Palpation of Joints or Extremities Neurological: Cranial nerves II-XII grossly intact Psych/Mental Status: Normal Affect, Appropriate Vital Signs Temp Pulse Resp BP Pulse Ox 100.3 F H 95 16 118/74 97 05/16/18 16:55 05/16/18 16:55 05/16/18 16:55 05/16/18 16:55 05/16/18 16:55 Oxygen Delivery Method Room Air Weight: 112 lb 10.499 oz Body Mass Index (BMI) 25.2 Microbiology Past 72 Hours 05/16/18 11:35 Influenza Types A,B Direct FA (MADALYN) - Final Mucosa - Nasopharyngeal Laboratory Tests Past 24 Hrs 05/16/18 05/16/18 05/16/18 11:30 11:30 13:19 WBC 18.3 H RBC 4.33 Hgb 14.3 Hct 43.5 MCV 100.5 H MCH 33.0 H MCHC 32.9 RDW 15.1 H RDW Differential 55.6 H Plt Count 262 MPV 9.5 Immature Gran % (Auto) 0.300 Neut % (Auto) 87.5 H Lymph % (Auto) 5.9 L [place] % (Auto) 5.8 Eos % (Auto) 0.2 Baso % (Auto) 0.3 Absolute Neuts (auto) 16.0 H Absolute Lymphs (auto) 1.09 Total Counted Not Reportable Sodium 138 Potassium 4.1 Chloride 100 Carbon Dioxide 30.0 Anion Gap 8 BUN 9 Creatinine 0.97 Estim Creat Clear Calc 58.96 Est GFR (MDRD) Af Amer 78 Est GFR (MDRD) Non-Af 64 BUN/Creatinine Ratio 9.3 L Glucose 117 H Lactic Acid Calcium 9.0 Urine Color Yellow Urine Clarity Clear Urine pH 7.0 Ur Specific [place] 1.005 Urine Protein Negative Urine Glucose (UA) Normal Urine Ketones Negative Urine Occult Blood Negative Urine Nitrite Negative Urine Bilirubin Negative Urine Urobilinogen Normal Ur Leukocyte Esterase 25 H Urine RBC 0 SEEN Urine WBC 0-5 SEEN Ur Squamous Epith Cells 0 SEEN Urine Bacteria 0 SEEN Urine Mucus 0 SEEN 05/16/18 14:00 WBC RBC Hgb Hct MCV MCH MCHC RDW RDW Differential Plt Count MPV Immature Gran % (Auto) Neut % (Auto) Lymph % (Auto) [place] % (Auto) Eos % (Auto) Baso % (Auto) Absolute Neuts (auto) Absolute Lymphs (auto) Total Counted Sodium Potassium Chloride Carbon Dioxide Anion Gap BUN Creatinine Estim Creat Clear Calc Est GFR (MDRD) Af Amer Est GFR (MDRD) Non-Af BUN/Creatinine Ratio Glucose Lactic Acid 1.3 Calcium Urine Color Urine Clarity Urine pH Ur Specific [place] Urine Protein Urine Glucose (UA) Urine Ketones Urine Occult Blood Urine Nitrite Urine Bilirubin Urine Urobilinogen Ur Leukocyte Esterase Urine RBC Urine WBC Ur Squamous Epith Cells Urine Bacteria Urine Mucus Assessment/Plan All Active Problems Pneumococcal pneumonia (Acute) Severe sepsis (Acute) Aspiration into airway (Acute) Sepsis (Acute) Acute bronchitis (Acute) Pneumonia (Acute) 1. Acute sepsis 2/2 presumed aspiration pna - no infiltrate on cxr. leukocytosis, tachycardia, tachypnea. Not hypoxic/SOB. Has severe dysphagia. Start unasyn. NPO, speech evals. Check urine antigens. Continue mucinex. 2. Dysphagia - if pt is chronically aspirating she likely either needs PEG tube or comfort care. 3. MRDD/Downs - lives in snf, caregiver does not feel comfortable caring for her. 4. Depression - ssri 5. HLD - statin 6. Hypothyroid - synthroid DVT ppx: lovenox DC planning: SNF. Guardian is sister - not present. This patient was seen by Brady Lux PA-C under the supervision of Doctor Gómez.
[2018-05-16] MEDS: Menthol/Lanolin/Calamine/Znox 113 GM Tube 1 APPLIC TOPICAL (20:57)
[2018-05-16] MEDS: Heparin Injection (Vial) 5,000 UNIT/ML VIAL 5000 UNIT SC (20:58)
[2018-05-16] MEDS: 0.9% Normal Saline 1,000 ML 125 ML IV (22:07)
[2018-05-17 02:27] VITALS: BP 96/53; PULSE 74; RESP 16; TEMP 36.7; O2SAT 97
--- NOTE | 2018-05-17 05:06 | RAD_ITS ---
STUDY: X-RAY CHEST REASON FOR EXAM: Female, 52 years old. Fever. TECHNIQUE: AP portable chest. COMPARISON: May 16, 2018. FINDINGS: The lungs are clear and expanded. There is no demonstrated pleural abnormality. Normal size heart. Normal mediastinum and cherise. Normal visualized pulmonary arteries. Normal visualized aortic arch and descending thoracic aorta. Normal visualized thoracic spine. Normal visualized ribs, clavicles, and shoulders. There is no demonstrated abnormality of the visualized soft tissue structures of the upper abdomen. RAD/Chest 1 View (Portable) IMPRESSION: No acute cardiopulmonary disease. Electronically Signed: Sarbjit Crocker MD at 5:34 EST , Service support ,
[2018-05-17] MEDS: Heparin Injection (Vial) 5,000 UNIT/ML VIAL 5000 UNIT SC ×3 (05:28→21:01)
[2018-05-17] MEDS: 0.9% Normal Saline 1,000 ML 125 ML IV (05:29)
[2018-05-17 06:30] LABS: Absolute Neutrophil Count 11.4 X10^3/uL (2.0-7.7); Basophil# 0.06 X10^3/uL; Basophil% 0.4 % (0-1); Eosinophil# 0.01 X10^3/uL; Eosinophils% 0.1 % (0-5); Hematocrit 38.1 % (37-47); Hemoglobin 12.3 g/dl (12.0-15.0); Lymphocyte % 9.5 % (19-41); Mean Corp Hgb Conc 32.3 g/gl (32-36); Mean Corpuscular Hgb 32.5 pg (27.0-32.0); Mean Corpuscular Volume 100.8 fL (81-99); Mean Platelet Vol. 9.9 fl (6.2-12.0); Monocyte# 0.83 X10^3/uL; Monocyte% 6.1 % (0-10); Neutrophil # 11.43 X10^3/uL (2.7-7.7); Neutrophil % 83.6 % (47-70); Platelet Count 243 K/mm3 (150-450); RBC Distribution Width SD 54.5 fl (35.1-43.9); Red Blood Count 3.78 M/mm3 (4.2-5.4); White Blood Count 13.7 K/mm3 (4.4-11.0)
[2018-05-17 06:33] LABS: POSITIVE COUNT NO; POSITIVE DIFFERENTIAL NO; POSITIVE MORPHOLOGY NO
[2018-05-17 06:41] LABS: BUN 6 mg/dL (7-18); BUN/Creat Ratio 9.7 RATIO (10-20); Calcium,Total 8.1 mg/dL (8.5-10.1); Chloride 108 mmol/L (98-107); Cholesterol 173 mg/dL (200); Creatinine, Serum 0.62 mg/dL (0.55-1.02); EST Glomerular Filtration Rate 108 mL/min (>60); Est Glom Filt Rate - Afr Amer 130 mL/min (>60); Glucose 88 mg/dL (74-106); Potassium 3.6 mmol/L (3.5-5.1); Sodium Level 141 mmol/L (136-145); Triglycerides 105 mg/dL
[2018-05-17 06:42] LABS: Anion Gap 8 (5-15); High Density Lipoprotein 53 mg/dL; Very Low Density Lipoprotein 21 mg/dL (5-40)
--- NOTE | 2018-05-17 07:48 | PN_ITS ---
Patient Problems: Active and Suspected Problems Aspiration into airway (Acute) Sepsis (Acute) Subjective: Patient has Down syndrome and does not communicate. It seems that she can follow simple steps when given demonstration but does not follow verbal commands. Seen by speech therapist and recommended n.p.o. for concern of aspiration. Patient has contracture Vitals/I&O's: Vital Signs Temp Pulse Resp BP Pulse Ox 98.1 F 74 16 96/53 L 97 05/17/18 02:27 05/17/18 02:27 05/17/18 02:27 05/17/18 02:27 05/17/18 02:27 Oxygen Delivery Method Room Air Weight: 112 lb 10.499 oz Body Mass Index (BMI) 25.2 Intake and Output for Last 24 Hours 05/15/18 05/16/18 05/17/18 23:59 23:59 23:59 Intake Total 500 / 500 700 / 700 Balance 500 / 500 700 / 700 General: Lethargic, - - Awake. HEENT: PERRLA, - - Microcephaly. Skin thickening and back of neck/nuchal rigidity Oral: - - Tongue protruding Neck: Supple, No JVD, Negative Carotid Bruits Lungs: Diminished - Air entry diminished bilaterally, Rhonchi Cardiovascular: Regular rate, Regular Rhythm, Normal S1, Normal S2, No murmurs Abdomen: Bowel Sounds Present, Soft, Non Tender, Non-Distended Extremities: No clubbing, Edema Skin: No rashes, No breakdown Musculoskeletal: No Tenderness to Palpation of Joints or Extremities, Arthritic Changes, Muscle Wasting Neurological: - - Contracture of lower and upper extremities. Short stature. Down syndrome faces Microbiology Past 72 Hours 05/16/18 11:35 Mucosa - Nasopharyngeal Influenza Types A,B Direct FA (MADALYN) - Final Laboratory Results 05/16/18 11:30: WBC 18.3 H, RBC 4.33, Hgb 14.3, Hct 43.5, MCV 100.5 H, MCH 33.0 H, MCHC 32.9, RDW 15.1 H, RDW Differential 55.6 H, Plt Count 262, MPV 9.5, Immature Gran % (Auto) 0.300, Neut % (Auto) 87.5 H, Lymph % (Auto) 5.9 L, [place] % (Auto) 5.8, Eos % (Auto) 0.2, Baso % (Auto) 0.3, Absolute Neuts (auto) 16.0 H, Absolute Lymphs (auto) 1.09, Total Counted Not Reportable 05/16/18 11:30: Sodium 138, Potassium 4.1, Chloride 100, Carbon Dioxide 30.0, Anion Gap 8, BUN 9, Creatinine 0.97, Estim Creat Clear Calc 58.96, Est GFR (MDRD) Af Amer 78, Est GFR (MDRD) Non-Af 64, BUN/Creatinine Ratio 9.3 L, Glucose 117 H, Calcium 9.0 05/16/18 13:19: Urine Color Yellow, Urine Clarity Clear, Urine pH 7.0, Ur Specific [place] 1.005, Urine Protein Negative, Urine Glucose (UA) Normal, Urine Ketones Negative, Urine Occult Blood Negative, Urine Nitrite Negative, Urine Bilirubin Negative, Urine Urobilinogen Normal, Ur Leukocyte Esterase 25 H, Urine RBC 0 SEEN, Urine WBC 0-5 SEEN, Ur Squamous Epith Cells 0 SEEN, Urine Bacteria 0 SEEN, Urine Mucus 0 SEEN 05/16/18 14:00: Lactic Acid 1.3 05/17/18 05:13: WBC 13.7 H, RBC 3.78 L, Hgb 12.3, Hct 38.1, MCV 100.8 H, MCH 32.5 H, MCHC 32.3, RDW 15.0 H, RDW Differential 54.5 H, Plt Count 243, MPV 9.9, Immature Gran % (Auto) 0.300, Neut % (Auto) 83.6 H, Lymph % (Auto) 9.5 L, [place] % (Auto) 6.1, Eos % (Auto) 0.1, Baso % (Auto) 0.4, Absolute Neuts (auto) 11.4 H, Absolute Lymphs (auto) 1.30, Total Counted Not Reportable 05/17/18 05:13: Sodium 141, Potassium 3.6, Chloride 108 H, Carbon Dioxide 25.0, Anion Gap 8, BUN 6 L, Creatinine 0.62, Estim Creat Clear Calc 86.60, Est GFR (MDRD) Af Amer 130, Est GFR (MDRD) Non-Af 108, BUN/Creatinine Ratio 9.7 L, Glucose 88, Calcium 8.1 L, Triglycerides 105, Cholesterol 173, LDL Cholesterol 99, VLDL Cholesterol 21, HDL Cholesterol 53 Current Medications Albuterol Sulfate (Ventolin Aerosols) 2.5 mg INHALATION Q2H PRN PRN PRN Reason: DYSPNEA Albuterol Sulfate (Ventolin Aerosols) 2.5 mg INHALATION Q6H.RT [facility] Last Admin: 05/17/18 06:50 Dose: Not Given Calamine/Phenol (Calmoseptine Ointment) 1 applic TOPICAL BID [facility]; Protocol Last Admin: 05/16/18 20:57 Dose: 1 applicatio Heparin Sodium (Porcine) (Heparin Na) 5,000 unit SC Q8 [facility] Last Admin: 05/17/18 05:28 Dose: 5,000 unit Sodium Chloride () 500 mls @ 999 mls/hr IV .Q31M ONE Last Admin: 05/16/18 15:00 Dose: 999 mls/hr Sodium Chloride () 1,000 mls @ 125 mls/hr IV .Q8H [facility] Last Admin: 05/17/18 05:29 Dose: 125 mls/hr Ampicillin Sodium/Sulbactam (Sodium 3 gm/ Sodium Chloride) 112 mls @ 150 mls/hr IV Q6 [facility] Last Admin: 05/17/18 05:27 Dose: 150 mls/hr Magnesium Hydroxide (Milk Of Magnesia) 30 ml PO DAILY PRN PRN PRN Reason: Constipation Medical Necessity - Tobacco Use Smoking Status: Never smoker Tobacco Use: Non-smoker Assessment/Plan All Active Problems Pneumococcal pneumonia (Acute) Severe sepsis (Acute) Aspiration into airway (Acute) Sepsis (Acute) Acute bronchitis (Acute) Pneumonia (Acute) The patient is a 52 year old F with history of Downs syndrome with dysphagia and aspiration, macroglossia, hypothyroidism, hld, who presents to the ER with c/o cough and fever for the past 2 days at the custodial. The patient does not follow verbal communication. She has significant dysphagia and was on modified dysphagia diet at the intermediate but currently n.p.o. She has not had her swallow function re-evaluated in several years. CXR shows atelectasis. The patient has a guardian wanted formal swallowing test. 1. SIRS (fever, tachycardia and tachypnea but normal lactic acid) suggestive of sepsis secondary to presumed aspiration pneumonia. No infiltrate on cxr. leukocytosis, tachycardia, tachypnea. Not hypoxic/SOB. Has severe dysphagia. Started on Unasyn. NPO, speech evals. Check urine antigens. Continue mucinex. Patient was seen by speech therapist and advised to continue n.p.o. and possible reevaluation tomorrow. Influenza test negative. On IV fluid, D5 half NS for nutrition maintenance 2. Dysphagia - if pt is chronically aspirating she likely either needs PEG tube or comfort care. 3. MRDD/Downs - lives in custodial, caregiver does not feel comfortable caring for her. 4. Depression - ssri 5. HLD - statin 6. Hypothyroid - synthroid DVT ppx: Heparin 5000 units subcutaneous 3 times daily DC planning: SNF. Guardian is sister - Code Visit Inpatient E&M: 80900 Subs Hosp L3
[2018-05-17 09:30] VITALS: BP 110/58; PULSE 76; RESP 18; TEMP 36.4; O2SAT 95
[2018-05-17] MEDS: Menthol/Lanolin/Calamine/Znox 113 GM Tube 1 APPLIC TOPICAL ×2 (09:30→21:03)
[2018-05-17 12:59] VITALS: PULSE 87; RESP 20
[2018-05-17] MEDS: Albuterol 2.5 MG/3 ML VIAL.NEB. INHALATION ×2 (12:59→18:57)
[2018-05-17 14:05] VITALS: BP 105/71; PULSE 85; RESP 18; TEMP 36.7; O2SAT 94
[2018-05-17] MEDS: Dext 5%-0.45% NS 1,000 ML 75 ML IV (14:05)
[2018-05-17 18:57] VITALS: PULSE 88; RESP 12
[2018-05-17 20:59] VITALS: BP 97/59; PULSE 76; RESP 16; TEMP 36.8; O2SAT 97
[2018-05-18] VITALS (9 sets, daily range): BP systolic 101–125; BP diastolic 58–81; PULSE 57–88; RESP 16–20; TEMP 36.2–36.8; O2SAT 93–100
[2018-05-18] MEDS: Dext 5%-0.45% NS 1,000 ML 75 ML IV ×3 (04:30→20:18)
[2018-05-18] MEDS: Heparin Injection (Vial) 5,000 UNIT/ML VIAL 5000 UNIT SC ×3 (05:29→22:53)
[2018-05-18 06:39] LABS: Absolute Lymphocyte Count 1.45 X10^3/ul (0.83-4.51); Absolute Neutrophil Count 8.9 X10^3/uL (2.0-7.7); Basophil# 0.06 X10^3/uL; Basophil% 0.5 % (0-1); Eosinophil# 0.07 X10^3/uL; Eosinophils% 0.6 % (0-5); Hematocrit 35.9 % (37-47); Hemoglobin 11.7 g/dl (12.0-15.0); Lymphocyte # 1.45 X10^3/ul (4.0); Lymphocyte % 12.9 % (19-41); Mean Corp Hgb Conc 32.6 g/gl (32-36); Mean Corpuscular Hgb 32.5 pg (27.0-32.0); Mean Corpuscular Volume 99.7 fL (81-99); Mean Platelet Vol. 9.7 fl (6.2-12.0); Monocyte# 0.74 X10^3/uL; Monocyte% 6.6 % (0-10); Neutrophil # 8.94 X10^3/uL (2.7-7.7); Neutrophil % 79.2 % (47-70); Platelet Count 241 K/mm3 (150-450); RBC Distribution Width CV 14.6 % (11.6-14.6); RBC Distribution Width SD 51.7 fl (35.1-43.9); White Blood Count 11.3 K/mm3 (4.4-11.0)
[2018-05-18 06:46] LABS: POSITIVE COUNT NO; POSITIVE DIFFERENTIAL NO; POSITIVE MORPHOLOGY NO
[2018-05-18 07:05] LABS: Anion Gap 8 (5-15); BUN 4 mg/dL (7-18); BUN/Creat Ratio 6.4 RATIO (10-20); Calcium,Total 8.4 mg/dL (8.5-10.1); Chloride 107 mmol/L (98-107); Creatinine, Serum 0.63 mg/dL (0.55-1.02); EST Glomerular Filtration Rate 106 mL/min (>60); Est Glom Filt Rate - Afr Amer 128 mL/min (>60); Estimated Creatinine Clearance 85.22 ml/min; Glucose 103 mg/dL (74-106); Potassium 3.3 mmol/L (3.5-5.1); Sodium Level 141 mmol/L (136-145)
[2018-05-18] MEDS: Albuterol 2.5 MG/3 ML VIAL.NEB. INHALATION ×3 (07:41→19:18)
[2018-05-18 07:44] LABS: Magnesium 1.7 mg/dL (1.6-2.6)
--- NOTE | 2018-05-18 07:54 | PN_ITS ---
Patient Problems: Active and Suspected Problems Aspiration into airway (Acute) Sepsis (Acute) Subjective: Patient was sleeping when she woke up to verbal stimulus. Getting nebulization treatment. Patient does not seem to be in respiratory distress. Pulse ox 100% on room air Vitals/I&O's: Vital Signs Temp Pulse Resp BP Pulse Ox 97.1 F L 82 16 125/81 H 96 05/18/18 02:05 05/18/18 02:05 05/18/18 02:05 05/18/18 02:05 05/18/18 02:05 Oxygen Delivery Method Room Air Weight: 112 lb 10.499 oz Body Mass Index (BMI) 25.2 Intake and Output for Last 24 Hours 05/16/18 05/17/18 05/18/18 23:59 23:59 23:59 Intake Total 500 / 500 2155 / 2155 833 / 833 Balance 500 / 500 2155 / 2155 833 / 833 General: Lethargic, - - Awake HEENT: Atraumatic, PERRLA, EOMI, - - Protruded tongue, has features of Down syndrome including thickening of skin fold back of neck. Neck: Supple, No JVD, Negative Carotid Bruits Lungs: Clear to auscultation, No rhonchi, No wheeze, No rales, Diminished - Air Entry diminished bilaterally Cardiovascular: Regular rate, Regular Rhythm, Normal S1, Normal S2, No murmurs Abdomen: Bowel Sounds Present, Soft, Non Tender, Non-Distended Extremities: Capillary Refill Less than 3 Seconds, Edema Skin: No rashes, No breakdown Musculoskeletal: No Tenderness to Palpation of Joints or Extremities, Arthritic Changes, Muscle Wasting, - - Contracture of extremities present especially left lower extremity at knee joint Neurological: Cranial nerves II-XII grossly intact Psych/Mental Status: - - Decreased cognitive function Microbiology Past 72 Hours 05/16/18 13:19 Urine Catheter - Catheter Urine Culture - Preliminary Culture exhibits no growth. 05/16/18 11:35 Mucosa - Nasopharyngeal Influenza Types A,B Direct FA (MADALYN) - Final Laboratory Results 05/18/18 05:50: WBC 11.3 H, RBC 3.60 L, Hgb 11.7 L, Hct 35.9 L, MCV 99.7 H, MCH 32.5 H, MCHC 32.6, RDW 14.6, RDW Differential 51.7 H, Plt Count 241, MPV 9.7, Immature Gran % (Auto) 0.200, Neut % (Auto) 79.2 H, Lymph % (Auto) 12.9 L, [place] % (Auto) 6.6, Eos % (Auto) 0.6, Baso % (Auto) 0.5, Absolute Neuts (auto) 8.9 H, Absolute Lymphs (auto) 1.45, Total Counted Not Reportable 05/18/18 05:50: Sodium 141, Potassium 3.3 L, Chloride 107, Carbon Dioxide 26.0, Anion Gap 8, BUN 4 L, Creatinine 0.63, Estim Creat Clear Calc 85.22, Est GFR (MDRD) Af Amer 128, Est GFR (MDRD) Non-Af 106, BUN/Creatinine Ratio 6.4 L, Glucose 103, Calcium 8.4 L 05/18/18 05:50: Magnesium 1.7 Current Medications Albuterol Sulfate (Ventolin Aerosols) 2.5 mg INHALATION Q2H PRN PRN PRN Reason: DYSPNEA Albuterol Sulfate (Ventolin Aerosols) 2.5 mg INHALATION Q6H.RT [facility] Last Admin: 05/18/18 07:41 Dose: 2.5 mg Calamine/Phenol (Calmoseptine Ointment) 1 applic TOPICAL BID [facility]; Protocol Last Admin: 05/17/18 21:03 Dose: 1 applicatio Heparin Sodium (Porcine) (Heparin Na) 5,000 unit SC Q8 [facility] Last Admin: 05/18/18 05:29 Dose: 5,000 unit Sodium Chloride () 500 mls @ 999 mls/hr IV .Q31M ONE Last Admin: 05/16/18 15:00 Dose: 999 mls/hr Ampicillin Sodium/Sulbactam (Sodium 3 gm/ Sodium Chloride) 112 mls @ 150 mls/hr IV Q6 [facility] Last Admin: 05/18/18 05:29 Dose: 150 mls/hr Dextrose/Sodium Chloride () 1,000 mls @ 75 mls/hr IV .[id number] [facility] Last Admin: 05/18/18 04:30 Dose: 75 mls/hr Potassium Chloride (Kcl 10meq/100ml) 10 meq in 100 mls @ 100 mls/hr IV BOLUS Q1H [facility] Stop: 11/23/18 09:29 Magnesium Hydroxide (Milk Of Magnesia) 30 ml PO DAILY PRN PRN PRN Reason: Constipation Medical Necessity - Tobacco Use Smoking Status: Never smoker Tobacco Use: Non-smoker Assessment/Plan All Active Problems Pneumococcal pneumonia (Acute) Severe sepsis (Acute) Aspiration into airway (Acute) Sepsis (Acute) Acute bronchitis (Acute) Pneumonia (Acute) The patient is a 52 year old F with history of Downs syndrome with dysphagia and aspiration, macroglossia, hypothyroidism, hld, who presents to the ER with c/o cough and fever for the past 2 days at the shelter. The patient does not follow verbal communication. She has significant dysphagia and was on modified dysphagia diet at the halfway but currently n.p.o. She has not had her swallow function re-evaluated in several years. CXR shows atelectasis. The patient has a guardian wanted formal swallowing raya t. 1. SIRS (fever, tachycardia and tachypnea but normal lactic acid) suggestive of sepsis secondary to presumed aspiration pneumonia. No infiltrate on cxr. leukocytosis, tachycardia, tachypnea. Not hypoxic/SOB. Has severe dysphagia. Started on Unasyn. NPO, speech evals. Check urine antigens. Continue mucinex. Influenza test negative. Urine culture negative On IV fluid, D5 half NS for nutrition maintenance 2. Dysphagia - if pt is chronically aspirating she likely either needs PEG tube or comfort care. Patient being evaluated by speech therapist currently recommended n.p.o. 3. MRDD/Downs - lives in shelter, caregiver does not feel comfortable caring for her. 4. Depression - ssri 5. HLD - statin 6. Hypothyroid - synthroid DVT ppx: Heparin 5000 units subcutaneous 3 times daily DC planning: SNF. Guardian is sister - Code Visit Inpatient E&M: [id number] [facility] Hosp L3
[2018-05-18] MEDS: Menthol/Lanolin/Calamine/Znox 113 GM Tube 1 APPLIC TOPICAL ×2 (09:30→22:52)
--- NOTE | 2018-05-18 09:57 | CASEMGMT ---
Social Work Note Per chart review the pt is from a snf and her sister is her legal guardian. Placed calls to both the snf and the pt's LG and unable to reach either. Left vm's requesting return phone calls from each. Returned call from Manuela who is the pt's primary caregiver at [facility] in [place] which models after [facility] [employer]. Per Manuela the pt is typically able to ambulate with a walker, and she had become weaker a few days prior to admission. She reports that she does typically assist the pt on her own, but claims that staff may need to use two. Inform that currently she is dependent on at least one individual. States that she eats pureed food and does feed herself. Inquires about hospice as she reports that they have discussed quality of life with the physician. She reports that she believes the sister would want her to return to the snf and if they can do that on hospice she believes they would pursue that. Inform that this underwriter mortgage loan will be happy to send a referral to hospice once LG indicates interest and approval of this consult. Will await confirmation regarding discharge plan from before pursuing. PLAN: Wait for confirmation from LG regarding hospice. Joselyn Velarde, MADAN, CHELSEA
--- NOTE | 2018-05-18 10:26 | CASEMGMT ---
Social Work Note Return phone call from pt's LG, Chelsi Crews. Discussed case with Chelsi and she would like the pt to return to the Shared Living if at all possible and is agreeable to a hospice referral to meet and discuss services. Chelsi would like this signwriter to update Manuela as well. Referral faxed to [facility] this date. Placed call to Manuela and updated on referral being made. Made aware that SW is available if further inquiries arise. PLAN: Hospice consult. MADAN Mesa, CHELSEA
--- NOTE | 2018-05-18 10:45 | CASEMGMT ---
Social Work Note Call from Marcy with [facility] who reports that she received the referral and will be contacting the to setup a time to meet. RN, Janee Borges, updated. SW to continue to follow and assist as needed. PLAN: Meet with [facility] regarding hospice consult. Joselyn Velarde, MADAN, CHELSEA
--- NOTE | 2018-05-18 15:18 | CPS ---
Addendum entered by Redd Macedo 05/18/18 19:55: Original Note: PATIENT ONLY TOLERATED ABOUT HALF OF THE BREATHING TREATMENT, PATIENT AGITATED AND VOCAL WHILE TRYING TO LISTEN TO BREATH SOUNDS.
--- NOTE | 2018-05-18 16:00 | CASEMGMT ---
Social Work Note Call from Marcy at [facility] reporting that she has established a preadmit meeting with the pt's legal guardian, Chelsi, on Monday 05/21 at 1500. MADAN Mesa, CHELSEA
[2018-05-19 00:38] VITALS: PULSE 64; RESP 16
[2018-05-19] MEDS: Albuterol 2.5 MG/3 ML VIAL.NEB. INHALATION (00:38)
[2018-05-19] MEDS: Heparin Injection (Vial) 5,000 UNIT/ML VIAL 5000 UNIT SC (05:53)
[2018-05-19] MEDS: Ibuprofen 100 MG/5 ML UDC 600 MG PO (06:51)
--- NOTE | 2018-05-19 10:33 | PCM.PROGNOTE ---
Patient Problems: Active and Suspected Problems Aspiration into airway (Acute) Sepsis (Acute) Subjective: Day #4 antibiotics-Unasyn Patient is a 52-year-old female with Down syndrome who resides in a intermediate. She was brought to the hospital on 05/16/2018 because of elevated temperatures at home. She was diagnosed with severe sepsis likely secondary to aspiration pneumonia, however the CXR showed no infiltrates but, the upper lobes, zuleyma on the right were not well visualized. She is basically nonverbal. She has been seen by speech therapy a total of 4 times and evaluation of her swallowing is incomplete due to her inability to cooperate and macroglossia. In the past she has been on a pur?ed diet with thin liquids. At one point she was on thickened liquids but her oral intake decreased and the diet was changed to thin liquids. There is consideration for PEG tube versus hospice. All events of the past 24 hours of been reviewed. She has been afebrile since 05/17/2018. Pulse ox is 100% on room air and vital signs are stable. White blood cell count yesterday was 11.3, down from 18.3 at admission. Potassium was 3.3 on 05/18/2018 and was not supplemented. Magnesium was 1.7. Objective: Patient was sleeping when I entered the room but awoke when I uncovered her head. Her breathing is easy and not labored. She appeared to be in no acute distress. She pulled the covers back over her head and was noncommunicative. HEENT: Atraumatic, marked macroglossia with the tongue protruding Lungs-decreased air entry but clear to auscultation with no wheezes, rhonchi or rales. Heart-regular rate and rhythm, no gallop, normal S1, normal S2 Abdomen-soft, nondistended, no guarding with palpation No peripheral edema, no cyanosis Skin-no rashes, no breakdown - Physical Exam Vital Signs Temp Pulse Resp BP Pulse Ox 98.3 F 64 16 123/58 H 100 05/18/18 20:15 05/19/18 00:38 05/19/18 00:38 05/18/18 20:15 05/18/18 20:15 Oxygen Delivery Method Room Air Weight: 112 lb 10.499 oz Body Mass Index (BMI) 25.2 Intake and Output for Last 24 Hours 05/17/18 05/18/18 05/19/18 23:59 23:59 23:59 Intake Total 2154 / 2154 2139 / 2139 1493 / 1493 Output Total 300 / 300 Balance 2155 / 2155 1839 / 1839 1493 / 1493 Microbiology Past 72 Hours 05/16/18 13:19 Urine Culture - Final Urine Catheter - Catheter Culture exhibits no growth. 05/16/18 11:35 Influenza Types A,B Direct FA (MADALYN) - Final Mucosa - Nasopharyngeal Medical Necessity - Tobacco Use Smoking Status: Never smoker Tobacco Use: Non-smoker Assessment/Plan All Active Problems Pneumococcal pneumonia (Acute) Severe sepsis (Acute) Aspiration into airway (Acute) Sepsis (Acute) Acute bronchitis (Acute) Pneumonia (Acute) Impressions 1. Acute febrile illness likely secondary to aspiration with SIRS 2. Down syndrome 3. Chronic dysphagia 4. Hypothyroidism 5. Hyperlipidemia 6. Depression 7. Hypokalemia -potassium supplementation has been ordered. Patient is afebrile for 2 days and her pulse ox on room air is 100%. The breathing is not labored. White blood cell count has decreased significantly with Unasyn. I spoke with her guardian, her sister Chelsi, about a PEG tube and about code status. No PEG....she wants her to be happy and have the comfort of eating and drinking.....she is OK with mechanical soft diet and thin liquids. CODE STATUS: Discussed code status at length with Chelsi including the difference between FULL CODE, DNR CCA and DNR CC status. All questions were answered. An order for DNR was entered into the computer. A total of 20 minutes was devoted to advanced care planning. (done over the phone) A DNR form was completed and placed on the chart and will be sent home to the critical care paramedic. There is a plan for hospice to meet with the pt and guardian at the intermediate on Monday. Will DC today....discussed with Manuela, her critical care paramedic.
--- NOTE | 2018-05-19 10:41 | PN_ITS ---
Patient Problems: Active and Suspected Problems Aspiration into airway (Acute) Sepsis (Acute) Subjective: Day #4 antibiotics-Unasyn Patient is a 52-year-old female with Down syndrome who resides in a halfway. She was brought to the hospital on 05/16/2018 because of elevated temperatures at home. She was diagnosed with severe sepsis likely secondary to aspiration pneumonia, however the CXR showed no infiltrates but, the upper lobes, zuleyma on the right were not well visualized. She is basically nonverbal. She has been seen by speech therapy a total of 4 times and evaluation of her swallowing is incomplete due to her inability to cooperate and macroglossia. In the past she has been on a pur?ed diet with thin liquids. At one point she was on thickened liquids but her oral intake decreased and the diet was changed to thin liquids. There is consideration for PEG tube versus hospice. All events of the past 24 hours of been reviewed. She has been afebrile since 05/17/2018. Pulse ox is 100% on room air and vital signs are stable. White blood cell count yesterday was 11.3, down from 18.3 at admission. Potassium was 3.3 on 05/18/2018 and was not supplemented. Magnesium was 1.7. Objective: Patient was sleeping when I entered the room but awoke when I uncovered her head. Her breathing is easy and not labored. She appeared to be in no acute distress. She pulled the covers back over her head and was noncommunicative. HEENT: Atraumatic, marked macroglossia with the tongue protruding Lungs-decreased air entry but clear to auscultation with no wheezes, rhonchi or rales. Heart-regular rate and rhythm, no gallop, normal S1, normal S2 Abdomen-soft, nondistended, no guarding with palpation No peripheral edema, no cyanosis Skin-no rashes, no breakdown - Physical Exam Vital Signs Temp Pulse Resp BP Pulse Ox 98.3 F 64 16 123/58 H 100 05/18/18 20:15 05/19/18 00:38 05/19/18 00:38 05/18/18 20:15 05/18/18 20:15 Oxygen Delivery Method Room Air Weight: 112 lb 10.499 oz Body Mass Index (BMI) 25.2 Intake and Output for Last 24 Hours 05/17/18 05/18/18 05/19/18 23:59 23:59 23:59 Intake Total 2154 / 2154 2139 / 2139 1493 / 1493 Output Total 300 / 300 Balance 2155 / 2155 1839 / 1839 1493 / 1493 Microbiology Past 72 Hours 05/16/18 13:19 Urine Culture - Final Urine Catheter - Catheter Culture exhibits no growth. 05/16/18 11:35 Influenza Types A,B Direct FA (MADALYN) - Final Mucosa - Nasopharyngeal Medical Necessity - Tobacco Use Smoking Status: Never smoker Tobacco Use: Non-smoker Assessment/Plan All Active Problems Pneumococcal pneumonia (Acute) Severe sepsis (Acute) Aspiration into airway (Acute) Sepsis (Acute) Acute bronchitis (Acute) Pneumonia (Acute) Impressions 1. Acute febrile illness likely secondary to aspiration with SIRS 2. Down syndrome 3. Chronic dysphagia 4. Hypothyroidism 5. Hyperlipidemia 6. Depression 7. Hypokalemia -potassium supplementation has been ordered. Patient is afebrile for 2 days and her pulse ox on room air is 100%. The breathing is not labored. White blood cell count has decreased significantly w ith Unasyn. I spoke with her guardian, her sister Chelsi, about a PEG tube and about code status. No PEG....she wants her to be happy and have the comfort of eating and drinking.....she is OK with mechanical soft diet and thin liquids. CODE STATUS: Discussed code status at length with Chelsi including the difference between FULL CODE, DNR CCA and DNR CC status. All questions were answered. An order for DNR was entered into the computer. A total of 20 minutes was devoted to advanced care planning. (done over the phone) A DNR form was completed and placed on the chart and will be sent home to the career development coordinator/teacher. There is a plan for hospice to meet with the pt and guardian at the halfway on Monday. Will DC today....discussed with Manuela, her career development coordinator/teacher.
[2018-05-19] MEDS: Dext 5%-0.45% NS 1,000 ML 75 ML IV (10:49)
[2018-05-19] MEDS: Menthol/Lanolin/Calamine/Znox 113 GM Tube 1 APPLIC TOPICAL (10:50)
--- NOTE | 2018-05-19 11:40 | DCINST_ITS ---
- Discharge Diagnoses Current Active Problems: Current Active and Chronic Problems Aspiration into airway (Acute) Dysphagia (Chronic) Sepsis (Acute) You will use the following diet at home:: Regular, Other - She must be seated upright at 90 degrees and have total supervision with feedings. Thin liquids are to be given via straw. Your food should be the consistency of: Puree Your liquids should be the consistency of: Regular/Thin Discharge Activity: Return to Normal Activity Call your doctor if you observe: Fever of 101 or Higher, Shortness of breath, - - Call your PCP if severe diarrhea ( > 5 stools a day), painful sores in the mouth, painful swallowing, rash or itching. Taking a probiotic such as Lactobacillus or Kefir can help with loose stools while taking antibiotics. Allergies/Adverse Reactions: Allergies Sulfa (Sulfonamide Antibiotics) Allergy (Verified 05/16/18 10:35) Rash lactose Adverse Reaction (Verified 05/16/18 10:35) Diarrhea Medications to take at Discharge Escitalopram Oxalate [Lexapro] 20 mg PO QHS 01/04/16 Levothyroxine [Synthroid] 88 mcg PO DAILY 01/04/16 Simvastatin [Zocor] 5 mg PO QHS 01/04/16 Gabapentin [Neurontin] 100 mg PO QHS 05/01/17 Multivitamin,Therapeutic [Thera] 1 each PO DAILY 09/28/17 Chlorpheniramine Maleate 4 mg PO TID 03/30/18 Ensure Clear 120 ml PO BID 03/30/18 Sennosides/Docusate Sodium [Docusate Sodium-Sennosides Tab] 1 each PO BID 03/30/18 Albuterol IH (ProAir) [Proair Hfa] 1 - 2 puff INHALATION Q4H PRN PRN #1 inhaler 04/02/18 Guaifenesin [Mucinex] 1,200 mg PO BID #20 tablet 04/02/18 Nystatin Powder [Mycostatin Powder] 1 applic TOPICAL TID #1 bottle 04/02/18 Ibuprofen 200 mg PO QHS PRN 05/16/18 Amox/Clav 400mg/5ml Susp [Augmentin Suspension 400mg/5ml] 800 mg PO BIDCM #120 ml 05/19/18 The following prescriptions were given: Amox/Clav 400mg/5ml Susp [Augmentin Suspension 400mg/5ml] 800 mg PO BIDCM #120 ml Primary Care Physician: Lazaro Serna MD [Primary Care Provider] - Please follow up with your Primary Care Physician in: 1-2 weeks Test Results: Test results from this visit will be discussed in further detail at your follow- up appointment, if applicable. Proposed Discharge Date: 05/19/18
--- NOTE | 2018-05-19 11:41 | CASEMGMT ---
Addendum entered by Susanna Madden 05/19/18 11:48: DNRCC completed and a copy left on chart to be sent home with patient at discharge. Nolberto Madden, RN, CCM. Original Note: Social Work Note Physician notified pt's Legal Guardian Chelsi and pt's caregiver Manuela that pt is being discharged today. SW placed a call to [facility] and left a message informing [facility] that pt is being discharged back to the [facility] today. Per physician, pt's caregiver Manuela will be transporting pt. Plan: Pt to discharge back to [facility] today. Physician informed pt's Legal Guardian and pt's caregiver Manuela that pt is being discharged. Pt's caregiver Manuela is transporting pt. Ada Yusuf MEDICAL COLLECTIONS REPRESENTATIVE, FLIGHT SURGEON
--- NOTE | 2018-05-19 11:43 | PCM.DC.SUM ---
Discharge Date and Diagnosis - Problem List Patient Problems: Active and Suspected Problems Hypokalemia (Acute) Aspiration into airway (Acute) Sepsis (Acute) Date of Admission: 05/16/18 Date of Discharge: 05/19/18 - Primary Discharge Diagnosis Active and Suspected Problems Sepsis (Acute) - likely due to acute bronchitis due to aspiration into the airway Aspiration bronchitis Hypokalemia (Acute) Aspiration into airway (Acute) - Secondary Discharge Diagnosis Chronic Problems Macroglossia, congenital (Chronic) Dysphagia (Chronic) Down syndrome (Chronic) HLD (hyperlipidemia) (Chronic) Depression (Chronic) Hospital Course and Treatment Imaging Results: Clinical Impression(s) from Imaging Studies Chest X-Ray 05/16/18 11:17 IMPRESSION: Hyperinflation. Mild increased markings at the lung bases suggestive of linear atelectasis. Electronically Signed: Maxim Kapoor MD at 12:30 EST Tel [phone], Service support , Abdomen/Pelvis CT 05/16/18 14:01 IMPRESSION: Hepatomegaly. Bladder wall thickening. The liver containing fat. Electronically Signed: Maxim Kapoor MD at 15:07 EST Tel [phone], Service support , Chest X-Ray 05/17/18 05:06 IMPRESSION: No acute cardiopulmonary disease. Electronically Signed: Sarbjit Crocker MD at 5:34 EST , Service support , none Operations: None Procedures: None Summary of Care Provided: The patient is a 52 year old F with a past medical history of Down syndrome, hyperlipidemia, depression, severe macroglossia and chronic aspiration who resides in a [facility]. She was brought to the emergency department at [facility] on 05/16/2018 with a complaint of increased temperatures at the [facility]. Patient is nonverbal and history was taken from her caregiver. She had had recent increase in cough. Her diet is pur?ed with regular/thin liquids. Temp in the emergency room was 100.3 ?F. Chest x-ray showed possible linear atelectasis in the bases with no obvious infiltrates. Labs showed an elevated white blood cell count at 18.3 with a left shift. Her heart rate was 106 at admission. Respiratory rate was 24. She was admitted to the hospital with a diagnosis of sepsis, likely secondary to aspiration into the airway, and she was started on Unasyn. She became afebrile on 05/17/2018. White count on 05/18/2018 had decreased to 11.3 with antibiotics. On 05/19/2018 she was afebrile with a pulse ox of 100% on room air. The lungs were clear to auscultation but breath sounds were diminished. Discussion was held with her Sister Chelsi who has her power of assistant district attorney regarding possibility of a PEG tube for persistent aspiration and also CODE STATUS. Chelsi was adamant about not placing a PEG tube. She also would not want any CPR, intubation or mechanical ventilation. She is agreeable to antibiotics and symptom management. Apparently there is an appointment with hospice to meet at the [facility] on Monday. She was discharged home on Augmentin to complete a 10-day course of antibiotics. Greater than 30 minutes was spent in care of the patient and discussion with her sister and caregiver. Patient Problems: Active and Suspected Problems Hypokalemia (Acute) Aspiration into airway (Acute) Sepsis (Acute) - Physical Exam Vital Signs Temp Pulse Resp BP Pulse Ox 98.3 F 64 16 123/58 H 100 05/18/18 20:15 05/19/18 00:38 05/19/18 00:38 05/18/18 20:15 05/18/18 20:15 Oxygen Delivery Method Room Air Weight: 112 lb 10.499 oz Body Mass Index (BMI) 25.2 Intake and Output for Last 24 Hours 05/17/18 05/18/18 05/19/18 23:59 23:59 23:59 Intake Total 2155 / 2155 2139 / 2139 1493 / 1493 Output Total 300 / 300 Balance 2155 / 2155 1839 / 1839 1493 / 1493 Microbiology Past 72 Hours 05/16/18 13:19 Urine Culture - Final Urine Catheter - Catheter Culture exhibits no growth. 05/16/18 11:35 Influenza Types A,B Direct FA (MADALYN) - Final Mucosa - Nasopharyngeal Discharge Activity: Return to Normal Activity Call your doctor if you observe: Fever of 101 or Higher, Shortness of breath, - - Call your PCP if severe diarrhea ( > 5 stools a day), painful sores in the mouth, painful swallowing, rash or itching. Taking a probiotic such as Lactobacillus or Kefir can help with loose stools while taking antibiotics. Home Medications: Medications to take at Discharge Escitalopram Oxalate [Lexapro] 20 mg PO QHS 01/04/16 Levothyroxine [Synthroid] 88 mcg PO DAILY 01/04/16 Simvastatin [Zocor] 5 mg PO QHS 01/04/16 Gabapentin [Neurontin] 100 mg PO QHS 05/01/17 Multivitamin,Therapeutic [Thera] 1 each PO DAILY 09/28/17 Chlorpheniramine Maleate 4 mg PO TID 03/30/18 Ensure Clear 120 ml PO BID 03/30/18 Sennosides/Docusate Sodium [Docusate Sodium-Sennosides Tab] 1 each PO BID 03/30/18 Albuterol IH (ProAir) [Proair Hfa] 1 - 2 puff INHALATION Q4H PRN PRN #1 inhaler 04/02/18 Guaifenesin [Mucinex] 1,200 mg PO BID #20 tablet 04/02/18 Nystatin Powder [Mycostatin Powder] 1 applic TOPICAL TID #1 bottle 04/02/18 Ibuprofen 200 mg PO QHS PRN 05/16/18 Amox/Clav 400mg/5ml Susp [Augmentin Suspension 400mg/5ml] 800 mg PO BIDCM #120 ml 05/19/18 Following Prescrptions Were Given to Patient: Amox/Clav 400mg/5ml Susp [Augmentin Suspension 400mg/5ml] 800 mg PO BIDCM #120 ml Primary Care Physician: Lazaro Serna MD [Primary Care Provider] - Please follow up with your Primary Care Physician in: 1-2 weeks Medical Necessity - Tobacco Use Smoking Status: Never smoker Tobacco Use: Non-smoker Meaningful Use Info Meaningful Use Diagnoses (Choose all that apply): None applicable Code Visit Inpatient E&M: 66103 Disch Hosp
--- NOTE | 2018-05-19 11:50 | DS.PCM_ITS ---
Discharge Date and Diagnosis - Problem List Patient Problems: Active and Suspected Problems Hypokalemia (Acute) Aspiration into airway (Acute) Sepsis (Acute) Date of Admission: 05/16/18 Date of Discharge: 05/19/18 - Primary Discharge Diagnosis Active and Suspected Problems Sepsis (Acute) - likely due to acute bronchitis due to aspiration into the airway Aspiration bronchitis Hypokalemia (Acute) Aspiration into airway (Acute) - Secondary Discharge Diagnosis Chronic Problems Macroglossia, congenital (Chronic) Dysphagia (Chronic) Down syndrome (Chronic) HLD (hyperlipidemia) (Chronic) Depression (Chronic) Hospital Course and Treatment Imaging Results: Clinical Impression(s) from Imaging Studies Chest X-Ray 05/16/18 11:17 IMPRESSION: Hyperinflation. Mild increased markings at the lung bases suggestive of linear atelectasis. Electronically Signed: Maxim Kapoor MD at 12:30 EST Tel [phone], Service support , Abdomen/Pelvis CT 05/16/18 14:01 IMPRESSION: Hepatomegaly. Bladder wall thickening. The liver containing fat. Electronically Signed: Maxim Kapoor MD at 15:07 EST Tel [phone], Service support , Chest X-Ray 05/17/18 05:06 IMPRESSION: No acute cardiopulmonary disease. Electronically Signed: Sarbjit rCocker MD at 5:34 EST , Service support , none Operations: None Procedures: None Summary of Care Provided: The patient is a 52 year old F with a past medical history of Down syndrome, hyperlipidemia, depression, severe macroglossia and chronic aspiration who resides in a [facility]. She was brought to the emergency department at [facility] on 05/16/2018 with a complaint of increased temperatures at the [facility]. Patient is nonverbal and history was taken from her caregiver. She had had recent increase in cough. Her diet is pur?ed with regular/thin liquids. Temp in the emergency room was 100.3 ?F. Chest x-ray showed possible linear atelectasis in the bases with no obvious infiltrates. Labs showed an elevated white blood cell count at 18.3 with a left shift. Her heart rate was 106 at admission. Respiratory rate was 24. She was admitted to the hospital with a diagnosis of sepsis, likely secondary to aspiration into the airway, and she was started on Unasyn. She became afebrile on 05/17/2018. White count on 05/18/2018 had decreased to 11.3 with antibiotics. On 05/19/2018 she was afebrile with a pulse ox of 100% on room air. The lungs were clear to auscultation but breath sounds were diminished. Discussion was held with her Sister Chelsi who has her power of transactional attorney regarding possibility of a PEG tube for persistent aspiration and also CODE STATUS. Chelsi was adamant about not placing a PEG tube. She also would not want any CPR, intubation or mechanical ventilation. She is agreeable to antibiotics and symptom management. Apparently there is an appointment with hospice to meet at the [facility] on Monday. She was discharged home on Augmentin to complete a 10-day course of antibiotics. Greater than 30 minutes was spent in care of the patient and discussion with her sister and caregiver. Patient Problems: Active and Suspected Problems Hypokalemia (Acute) Aspiration into airway (Acute) Sepsis (Acute) - Physical Exam Vital Signs Temp Pulse Resp BP Pulse Ox 98.3 F 64 16 123/58 H 100 05/18/18 20:15 05/19/18 00:38 05/19/18 00:38 05/18/18 20:15 05/18/18 20:15 Oxygen Delivery Method Room Air Weight: 112 lb 10.499 oz Body Mass Index (BMI) 25.2 Intake and Output for Last 24 Hours 05/17/18 05/18/18 05/19/18 23:59 23:59 23:59 Intake Total 2155 / 2155 2139 / 2139 1493 / 1493 Output Total 300 / 300 Balance 2155 / 2155 1839 / 1839 1493 / 1493 Microbiology Past 72 Hours 05/16/18 13:19 Urine Culture - Final Urine Catheter - Catheter Culture exhibits no growth. 05/16/18 11:35 Influenza Types A,B Direct FA (MADALYN) - Final Mucosa - Nasopharyngeal Discharge Activity: Return to Normal Activity Call your doctor if you observe: Fever of 101 or Higher, Shortness of breath, - - Call your PCP if severe diarrhea ( > 5 stools a day), painful sores in the mouth, painful swallowing, rash or itching. Taking a probiotic such as Lactobacillus or Kefir can help with loose stools while taking antibiotics. Home Medications: Medications to take at Discharge Escitalopram Oxalate [Lexapro] 20 mg PO QHS 01/04/16 Levothyroxine [Synthroid] 88 mcg PO DAILY 01/04/16 Simvastatin [Zocor] 5 mg PO QHS 01/04/16 Gabapentin [Neurontin] 100 mg PO QHS 05/01/17 Multivitamin,Therapeutic [Thera] 1 each PO DAILY 09/28/17 Chlorpheniramine Maleate 4 mg PO TID 03/30/18 Ensure Clear 120 ml PO BID 03/30/18 Sennosides/Docusate Sodium [Docusate Sodium-Sennosides Tab] 1 each PO BID 03/30/18 Albuterol IH (ProAir) [Proair Hfa] 1 - 2 puff INHALATION Q4H PRN PRN #1 inhaler 04/02/18 Guaifenesin [Mucinex] 1,200 mg PO BID #20 tablet 04/02/18 Nystatin Powder [Mycostatin Powder] 1 applic TOPICAL TID #1 bottle 04/02/18 Ibuprofen 200 mg PO QHS PRN 05/16/18 Amox/Clav 400mg/5ml Susp [Augmentin Suspension 400mg/5ml] 800 mg PO BIDCM #120 ml 05/19/18 Following Prescrptions Were Given to Patient: Amox/Clav 400mg/5ml Susp [Augmentin Suspension 400mg/5ml] 800 mg PO BIDCM #120 ml Primary Care Physician: Lazaro Serna MD [Primary Care Provider] - Please follow up with your Primary Care Physician in: 1-2 weeks Medical Necessity - Tobacco Use Smoking Status: Never smoker Tobacco Use: Non-smoker Meaningful Use Info Meaningful Use Diagnoses (Choose all that apply): None applicable Code Visit Inpatient E&M: 18274 Disch Hosp
[2018-05-19 12:00] VITALS: BP 130/60; PULSE 61; RESP 16; TEMP 37; O2SAT 95
== END 2018-05-19 13:00 | disposition home or self-care (01) | DRG 871 ==
LOC: ED 11:25 → MS3 16:33
PROVIDERS: Internal Medicine; Admitting Provider Internal Medicine; Emergency Provider Emergency Medicine; Family Provider Internal Medicine; PCP Internal Medicine; Visit Provider Internal Medicine
DX: A41.9 Sepsis, unspecified organism (principal); J69.0 Pneumonitis due to inhalation of food and vomit; Q90.9 Down syndrome, unspecified; E78.5 Hyperlipidemia, unspecified; E87.6 Hypokalemia; Q38.2 Macroglossia; R13.10 Dysphagia, unspecified; F32.9 Major depressive disorder, single episode, unspecified; E03.9 Hypothyroidism, unspecified
CPT/HCPCS: 36415; 71045; 74176; 80048; 80061; 81001; 83605; 83735; 85025; 87040; 87086; 87804; 92526; 93005; 94640; 97161; 97165; 97802; 99285; J7030; J7040; P9612; A4216; J0295; J7799